=== PATIENT | male | born 1960 | race Caucasian/White ===

== ENCOUNTER 2017-09-02 15:27 | Emergency (ER) | payer OTHER ==
[~2017-09-02] VITALS: Ht 172.7 cm; Wt 70.5 kg
[2017-09-02] MEDS ORDERED: LIDO1KIT9 EX (15:44)
[2017-09-02] MEDS ORDERED: LIPI20TA PO (15:44)
[2017-09-02] MEDS ORDERED: HYDR100C PO (15:44)
[2017-09-02] MEDS ORDERED: VITA100054 PO (15:44)
[2017-09-02] MEDS ORDERED: TIZA4CAP3 PO (15:44)
[2017-09-02] MEDS ORDERED: IMIT100T PO (15:44)
[2017-09-02] MEDS ORDERED: ROXI1TAB2 PO (15:44)
[2017-09-02] MEDS ORDERED: AMBI5TAB PO (15:44)
[2017-09-02] MEDS ORDERED: TOPA50TA8 PO (15:44)
[2017-09-02] MEDS ORDERED: DULO30CA PO (15:44)
[2017-09-02] MEDS ORDERED: KETOROLAC 60 MG/2 ML VIAL (J1885) IM ONE (16:45)
[2017-09-02] MEDS ORDERED: diphenhydrAMINE INJ 50MG/ML VIAL (J1200) IM STA (16:51)
[2017-09-02] MEDS ORDERED: MORPHINE 2 MG/ML 1ML SYRINGE IM ONE (17:00)
[2017-09-02] MEDS ORDERED: MORPHINE 2 MG/ML 1ML SYRINGE IV ONE (17:45)
[2017-09-02 17:48] LABS: MEAN CORPUSCULAR HEMOGLOBIN 30.6 pg (27.0-33.0); MEAN CORPUSCULAR HGB CONC 34.5 g/dl (32.0-36.5); MEAN CORPUSCULAR VOLUME 88.5 fl (80.0-96.0); PLATELET COUNT, AUTOMATED 219 10^3/uL (150-450); RED CELL DISTRIBUTION WIDTH 12.3 % (11.5-14.5); WHITE BLOOD COUNT 9.2 10^3/uL (4.0-10.0)
[2017-09-02 18:00] LABS: ADD MANUAL DIFFER YES; ADD MORPHOLOGY? YES; DIFF SLIDE NUMBER 343; POSITIVE DIFF POS FLAG; POSITIVE MORPH POS FLAG; WBC SCAT POS FLAG
[2017-09-02 18:09] LABS: ALBUMIN 4.1 GM/DL (3.2-5.2); ALBUMIN/GLOBULIN RATIO 1.24 (1.00-1.93); ALKALINE PHOSPHATASE 71 U/L (45-117); ALT/SGPT 39 U/L (12-78); ANION GAP 12 MEQ/L (8-16); AST/SGOT 18 U/L (15-37); BILIRUBIN,TOTAL 0.8 MG/DL (0.2-1.0); BLOOD UREA NITROGEN 18 MG/DL (7-18); CALCIUM LEVEL 9.4 MG/DL (8.5-10.1); CARBON DIOXIDE LEVEL 25 MEQ/L (21-32); CHLORIDE LEVEL 105 MEQ/L (98-107); CREATININE FOR GFR 1.23 MG/DL (0.70-1.30); GLOMERULAR FILTRATION RATE > 60.0 (>56); GLUCOSE, FASTING 78 MG/DL (70-105); SODIUM LEVEL 142 MEQ/L (136-145); TOTAL PROTEIN 7.4 GM/DL (6.4-8.2)
[2017-09-02] MEDS ORDERED: MORPHINE 4 MG/ML 1ML SYRINGE IV ONE (18:15)
[2017-09-02] MEDS ORDERED: ONDANSETRON 4MG/2ML VIAL (J2405) IV ONE (18:15)
[2017-09-02 18:58] LABS: EOSINOPHILS 1 % (0-5)
[2017-09-02 19:30] VITALS: BP 111/65
[2017-09-02] MEDS ORDERED: POTASSIUM CHLORIDE 10 MEQ SR TABLET PO ONE (19:30)
== END 2017-09-02 19:51 | disposition home or self-care (01) ==
LOC: M ED 15:27
DX: G89.29 Other chronic pain (principal); M54.5 Low back pain; M62.830 Muscle spasm of back; Z87.891 Personal history of nicotine dependence; Z79.899 Other long term (current) drug therapy; Z88.8 Allergy status to other drugs, medicaments and biological substances
CPT/HCPCS: 80053; 85025; 94760; 96372; 96374; 96375; 96376; 99283; J1200; J2405; J3360

== ENCOUNTER 2019-05-03 12:50 | Day surgery (SDC) | payer OTHER ==
[~2019-05-03] VITALS: Ht 172.7 cm; Wt 73.5 kg
[~2019-05-03 12:50] MED LIST: AMBI5TAB PO; DULO30CA9 PO; HYDR100C PO; IMIT100T PO; LIDO1KIT9 EX; LIDOCAINE 2% INJ 100 MG/5 ML SDV (FOR ANES.) As Ordered ONE; LIPI20TA PO; NS 1,000 ML IV ONE; PROPOFOL 200 MG/20 ML VIAL As Ordered ONE; REME15TA2 PO; ROXI1TAB2 PO; TIZA4CAP PO; TOPA50TA8 PO; VITA100054 PO
[2019-05-03] MEDS ORDERED: PROPOFOL 200 MG/20 ML VIAL As Ordered ONE ×2 (14:07→14:42)
[2019-05-03] MEDS ORDERED: LIDOCAINE 2% INJ 100 MG/5 ML SDV (FOR ANES.) As Ordered ONE (14:07)
--- NOTE | 2019-05-03 14:56 | ROOR ---
Patient Name: Camron Crook Procedure Date: 05/03/2019 2:38 PM Date of : 1960 Age: 58 Room: [facility] Gender: Male Note Status: Finalized Procedure: Total Colonoscopy to Cecum Indications: High risk colon cancer surveillance: Personal history of colonic polyps, Last colonoscopy: 2012 Providers: Ashwin Munoz MD Referring MD: [facility]. Requesting Provider: Medicines: Monitored Anesthesia Care Complications: No immediate complications. Procedure: Pre-Anesthesia Assessment: - The heart rate, respiratory rate, oxygen saturations, blood pressure, adequacy of pulmonary ventilation, and response to care were monitored throughout the procedure. The Colonoscope was introduced through the anus and advanced to the cecum, identified by appendiceal orifice and ileocecal valve. The colonoscopy was performed without difficulty. The patient tolerated the procedure well. The quality of the bowel preparation was excellent. Findings: The perianal and digital rectal examinations were normal. Non-bleeding internal hemorrhoids were found during retroflexion. The hemorrhoids were small and Grade I (internal hemorrhoids that do not prolapse). No other significant abnormalities were identified in a careful examination of the remainder of the colon. The exam was otherwise without abnormality on direct and retroflexion views. Impression: - Non-bleeding internal hemorrhoids. - The examination was otherwise normal on direct and retroflexion views. - No specimens collected. - The exam was otherwise normal to the cecum. Recommendation: - Patient has a contact number available for emergencies. The signs and symptoms of potential delayed complications were discussed with the patient. Return to normal activities tomorrow. Written discharge instructions were provided to the patient. - High fiber diet. - Discharge patient to home. - Continue present medications. - Repeat colonoscopy in 5 years for surveillance. - Return to referring physician. - The findings and recommendations were discussed with the patient's family. Ashwin Munoz MD Ashwin Munoz MD 05/03/2019 2:55:48 PM Electronically signed by Ashwin Munoz MD Number of Addenda: 0 Note Initiated On: 05/03/2019 2:38 PM Estimated Blood Loss: Estimated blood loss: none.
[2019-05-03 15:20] VITALS: BP 138/81
== END 2019-05-03 15:31 | disposition home or self-care (01) ==
LOC: M OPP 12:50
PROVIDERS: ATTEND Internal Medicine Gastroenterology
DX: Z12.11 Encounter for screening for malignant neoplasm of colon (principal); Z86.010 Personal history of colon polyps; K64.0 First degree hemorrhoids; Z88.8 Allergy status to other drugs, medicaments and biological substances; Z79.899 Other long term (current) drug therapy

== ENCOUNTER → 2019-09-21 | Outpatient (CLI) | payer OTHER ==
[~2019-09-21] MED LIST changes: -LIDOCAINE 2% INJ 100 MG/5 ML SDV (FOR ANES.) As Ordered ONE; -NS 1,000 ML IV ONE; -PROPOFOL 200 MG/20 ML VIAL As Ordered ONE
--- NOTE | 2019-10-05 05:38 | ECWPNPC ---
PATIENT NAME: LALA RODRIGUEZ : 1960 GENDER: MALE VISIT DATE: 09/21/2019 DISCHARGE DATE: 09/21/19 1220 VISIT LOCKED DATE TIME: PHYSICIAN: SURY LENNON MD RESOURCE: SURY LENNON MD REASON FOR APPOINTMENT 1. CHRONIC BACK PAIN HISTORY OF PRESENT ILLNESS PAIN SCREENING: PATIENT HAS A COMPLAINT OF ACUTE OR CHRONIC PAIN :YES 59 YEAR OLD MALE PATIENT WITH A HISTORY OF LOW BACK PAIN. THE PATIENT DESCRIBES THE PAIN ACHING, BURNING, STABBING, SHOOTING, AND CONTINUOUS WITH A PAIN SCORE OF 3-10/10 DEPENDING ON PHYSICAL ACTIVITY. THE PATIENT STATES HIS PAIN BEGINS IN HIS LOW BACK, MAINLY ON THE RIGHT SIDE, AND OCCASIONALLY HAS INSTABILITY OF HIS RIGHT LEG THAT HAS CAUSED NUMEROUS FALLS. 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 THE PATIENT SAYS HIS PAIN IS AFFECTING HIS ABILITY TO PERFORM HIS DAILY ACTIVITIES SUCH CLEANING HIS HOUSE, GROCERY SHOPPING, AND SOCIALIZING. THE PATIENT EXPLAINS THAT HIS PAIN OFTEN GETS SEVERE AND HE DOES NOT WISH TO BE AROUND ANYONE. THE PATIENT SAYS HE HAS RECEIVED INJECTION THERAPY IN THE PAST THAT DID NOT OFFER MUCH RELIEF FOR HIM. THE PATIENT SAYS HE HAS CONCERNS OF THE USE OF STEROIDS FROM THE INJECTIONS AND HE WOULD PREFER NOT TO RECEIVE STEROIDS. PATIENT DENIES UNEXPLAINABLE WEIGHT LOSS, FEVER, CHILLS, NEW CHANGES ON HIS URINARY OR BOWEL CONTROL. FALL RISK SCREENING: SCREENING :NO FALLS REPORTED IN THE LAST YEAR CURRENT MEDICATIONS TAKING AMBIEN 5 MG TABLET 1 TABLET AT BEDTIME ORALLY ONCE A DAY TAKING CRESTOR 40 MG TABLET 1 TABLET ORALLY ONCE A DAY TAKING MAY HAVE - - CBD OIL CAPSULE 20MG DAILY TAKING MAY HAVE - - CBD VAPE NEEDED TAKING CARBOXYMETHYLCELLULOSE SODIUM 0.5 % SOLUTION DIRECTED OPHTHALMIC TAKING HYDROXYZINE HCL 10 MG TABLET DIRECTED ORALLY BID TAKING IMITREX 100 MG TABLET 1 TABLET AT LEAST 2 HOURS BETWEEN DOSES NEEDED ORALLY TWICE A DAY TAKING LIDOCAINE & ADHESIVE SHEET 5 % KIT DIRECTED EXTERNALLY TAKING CENTRUM SILVER - TABLET DIRECTED ORALLY TAKING PROBIOTIC - CAPSULE DIRECTED ORALLY TAKING OXYCODONE HCL 5 MG TABLET 1 TABLET NEEDED ORALLY BID TAKING REMERON 30 MG TABLET 1 TABLET AT BEDTIME ORALLY ONCE A DAY TAKING TOPAMAX 50 MG TABLET 1 TABLET ORALLY TID TAKING ZANAFLEX 4 MG TABLET 1 TABLET NEEDED ORALLY BID TAKING MAY USE - - THC ORAL SPRAY , NOTES: PT USES THC ORAL SPRAY, POWDER, AND VAPE MEDICATION LIST REVIEWED AND RECONCILED WITH THE PATIENT PAST MEDICAL HISTORY SLEEP APNEA CHRONIC BACK PAIN ALLERGIES COMPAZINE: SEIZURES - ALLERGY SURGICAL HISTORY LEFT SHOULDER SURGERY 11/2011 ABCESS FROM SPIDER BITE 1986 FAMILY HISTORY FATHER: , DIAGNOSED WITH OTHER MALIGNANT NEOPLASM OF UNSPECIFIED SITE MOTHER: SIBLINGS: UNSPECIFIED CEREBRAL ARTERY OCCLUSION WITH CEREBRAL INFARCTION, UNSPECIFIED HEART DISEASE SOCIAL HISTORY GENERAL: TOBACCO USE ARE YOU A:NONSMOKER EDUCATION LEVEL OF EDUCATION:COLLEGE DIET: GLUTEN FREE. LANGUAGE LANGUAGES SPOKEN:MACEDONIAN RECREATIONAL DRUG USE DRUG USE?NO EXERCISE: WALKS. LEARNING BARRIERS / SPECIAL NEEDS BARRIERS TO LEARNING?NO HEARING IMPAIRED?NO VISION IMPAIRED?YES :CORRECTIVE LENSES COGNITIVELY IMPAIRED?NO READINESS TO LEARN?YES PAIN CLINIC PFS, CLERGY, PUBLIC HEALTH REFERRALS HAS THE PATIENT BEEN EDUCATED REGARDING HIS/HER PLAN OF CARE?YES HAS THE PATIENT BEEN EDUCATED REGARDING PAIN, THE RISK FOR PAIN, THE IMPORTANCE OF EFFECTIVE PAIN MANAGEMENT, AND THE PAIN ASSESSMENT PROCESS?YES LATEX QUESTIONNAIRE LATEX ALLERGY : HAVE YOU EVER DEVELOPED ANY TYPE OF REACTION AFTER HANDLING LATEX PRODUCTS SUCH RUBBER GLOVES, CONDOMS, DIAPHRAGMS, BALLOONS, SOCKS, OR UNDERWEAR?NO LATEX ALLERGY : HAVE YOU EVER DEVELOPED ANY TYPE OF REACTION DURING OR AFTER DENTAL APPOINTMENT, VAGINAL/RECTAL EXAMINATION, SURGICAL PROCEDURE, OR ANY OTHER EXPOSURE?NO LATEX RISK : HAVE YOU EVER HAD ANY DIFFICULTY BREATHING OR HIVES AFTER EATING OR HANDLING ANY FRUITS, OR VEGETABLES; SUCH KIWI, BANANAS, STONE FRUITS, OR CHESTNUTSNO LATEX RISK : DO YOU HAVE A PREVIOUS PERSONAL HISTORY OF MORE THAN NINE SURGERIES, SPINA BIFIDA, OR REPEATED CATHERIZATIONS? NO LATEX RISK : ARE YOU FREQUENTLY EXPOSED TO LATEX PRODUCTS IN YOUR OCCUPATION?NO DATE ASKED : 09/21/2019 CAFFEINE CAFFEINE USE?YES 1 CUP COFFEE DAILY ADVANCE DIRECTIVE ADVANCE DIRECTIVE DISCUSSED WITH PATIENT:YES PT DOES HAVE HCP AND CATHRYN ESTEBAN JUDAISM [id number] RELIGIOUS ALCOHOL SCREENING DID YOU HAVE A DRINK CONTAINING ALCOHOL IN THE PAST YEAR?YES HOW OFTEN DID YOU HAVE A DRINK CONTAINING ALCOHOL IN THE PAST YEAR?TWO TO FOUR TIMES A MONTH (2 POINTS) HOW MANY DRINKS DID YOU HAVE ON A TYPICAL DAY WHEN YOU WERE DRINKING IN THE PAST YEAR?1 OR 2 (0 POINTS) HOW OFTEN DID YOU HAVE SIX OR MORE DRINKS ON ONE OCCASION IN THE PAST YEAR?NEVER (0 POINTS) POINTS2 INTERPRETATIONNEGATIVE OCCUPATION: RETIRED. REVIEWED WITH PATIENT 09/21/19 1055 BV. HOSPITALIZATION/MAJOR DIAGNOSTIC PROCEDURE BACK PAIN 2006 SLIP AND FALL ON ICE INJURED BACK/HEAD 2008 LOW BACK PAIN 2017 REVIEW OF SYSTEMS REVIEWED BY: PROVIDER: SURY LENNON MD . CONSTITUTIONAL: ANY CHANGE IN YOUR MEDICAL CONDITION? NO . CHILLS NO . FEVER NO . INFECTION: DO YOU HAVE NEW INFECTIONS? NO . DO YOU HAVE HISTORY OF MRSA? NO . MUSCULOSKELETAL: ANY NEW PATTERNS OF PAIN OR NUMBNESS? NO . SYTEMIC LUPUS NO . GASTROENTEROLOGY: ANY NEW CHANGE IN BOWEL CONTROL? NO . BARRETTS ESOPHAGUS NO . CIRRHOSIS NO . HEPATITIS NO . LIVER FAILURE NO . ACID REFLUX NO . UNEXPLAINED WEIGHT LOSS NO . GENITOURINARY: ANY NEW CHANGE IN BLADDER CONTROL? NO . IS THERE A CHANCE YOU COULD BE ? NO . HEMATOLOGY/LYMPH: DO YOU TAKE ANY BLOOD THINNERS? (FOR EXAMPLE- COUMADIN, PLAVIX, AGGRENOX, PLATEL, PRADAXA, OR XARELTO) NO . WHEN WAS YOUR LAST DOSE? DATE: TIME: . LOW PLATELET COUNT NO . SICKLE CELL DISEASE NO . VON WILLIEBRANDS NO . FACTOR V LEIDEN NO . THALLASEMIA NO . ANEMIA NO . EASY BRUISING NO . NEUROLOGY: HAVE YOU FALLEN IN THE PAST 12 MONTHS? NO . ANY NEW EXTREMITY NUMBNESS OR WEAKNESS? NO . HEAD INJURY YES, PT STATES HE HAS HISTORY OF MULTIPLE CONCUSSION. STATES HIS LAST CONCUSSION WAS 2007 WHEN HE SLIPPED AND FELL ON ICE. STATES HE WAS TREATED IN HOSPITAL FOR THIS FALL . DEMENTIA NO . CEREBRAL PALSY NO . MULTIPLE SCLEROSIS NO . DIZZINESS NO . HEADACHE YES, PT STATES HE HAS MEDICATION FOR MIGRAINES, STATES HE WAS GETTING MIGRAINES A FEW TIMES A WEEK, BUT STATES HE HAS ONLY HAD 1 HEADACHE IN THE PAST MONTH. . STROKES NO . VERTIGO NO . CARDIOLOGY: DO YOU HAVE A PACEMAKER OR DEFIBRILLATOR? NO . ANGINA NO . HEART ATTACK NO . HEART SURGERY NO . CONGESTIVE HEART FAILURE/FLUID OVERLOAD NO . CHEST PAIN NO . HIGH BLOOD PRESSURE NO . IRREGULAR HEART BEAT NO . RESPIRATORY: HAVE YOU BEEN SICK IN THE PAST WEEK? NO . FEVER NO . FLU LIKE SYMPTOMS? NO . CPAP YES, DIAGNOSED WITH SLEEP APNEA, STATES HE DOES HAVE CPAP MACHINE BUT DOES NOT USE IT . BYPAP NO . ASTHMA NO . EMPHYSEMA NO . CHRONIC LUNG DISEASES NO . SHORTNESS OF BREATH ON EXERTION NO . COUGH NO . SNORING NO . INTEGUMENTARY: DO YOU HAVE ANY RASHES OR OPEN SORES? NO . ALLERGIC/IMMUNO: ARE YOU ALLERGIC TO IV DYE? NO . ANY NEW ALLERGIES? NO . PSYCHIATRIC: DO YOU HAVE THOUGHTS OF HURTING YOURSELF OR SOMEONE ELSE? NO . ARE YOU ABUSED, NEGLECTED, OR IN AN UNSAFE ENVIRONMENT? NO . ENDOCRINOLOGY: ARE YOU DIABETIC? NO . THYROID DISORDER NO . OTHER: DO YOU NEED ANY PRESCRIPTIONS? NO . IF YES, PLEASE LIST: ____ . ANY NEW PROBLEMS WITH YOUR MEDICATIONS? NO . WHEN DID YOU LAST EAT? ____ . WHEN DID YOU LAST DRINK? ____ . WHAT DID YOU LAST DRINK? ____ . NAME OF PERSON DRIVING YOU HOME? ____ . DO YOU HAVE ANY OTHER QUESTIONS OR CONCERNS NO . VITAL SIGNS WT 171.8 LBS, HT 58 IN, BMI 35.90 INDEX, BP 141/82 MM HG, HR 88 /MIN, RR 18 /MIN, TEMP 97.2 F, OXYGEN SAT % 98%, NA INITIALS AW 1041. EXAMINATION GENERAL EXAMINATION: PATIENT IS ALERT O X 3 AND COOPERATIVE. LUNGS CLEAR, TO AUSCULTATION. HEART: NO MURMURS OR GALLOPS; FACIAL CRANIAL NERVES ARE GROSSLY NORMAL. GOOD SYMMETRY OF FACIAL MUSCLE MOVEMENT. NORMAL VISUAL VEGA. ANTALGIC WALK. PATIENT IS LIMPING FROM THE RIGHT LEG. PRESENCE OF BANDS OF TISSUE AND TRIGGER POINTS WITH RESTRICTION OF MOVEMENT OF THE LOW BACK. RIGHT LEG IS WEAKER AT EXTENSION AND FLEXION. STRAIGHT LEG RAISE OF THE RIGHT LEG IS POSITIVE AT 60 DEGREES FOR RADICULOPATHY. PAIN INCREASES OVER THE LUMBAR FACET JOINTS WITH EXTENSION AND LATERAL ROTATION OF THE BACK, ESPECIALLY ON THE RIGHT SIDE. X-RAY OF THE LUMBAR SPINE DONE ON 07/12/2019 SHOWS DEXTROSCOLIOSIS, DISC DEGENERATION, AND DISC NARROWING AT L5-S1. ASSESSMENTS MYALGIA, OTHER SITE - M79.18 (PRIMARY) OTHER CHRONIC PAIN - G89.29 LOW BACK PAIN - M54.5 INTERVERTEBRAL DISC DISORDERS WITH RADICULOPATHY, LUMBAR REGION - M51.16 TREATMENT MYALGIA, OTHER SITE CLINICAL NOTES: WE DISCUSSED SEVERAL ISSUES WITH MR. RODRIGUEZ'S PAIN MANAGEMENT CASE. I AM ORDERING FOR A LUMBAR MRI TO GET A BETTER UNDERSTANDING OF WHERE THE PATIENT'S PAIN IS ORIGINATING FROM. DEPENDING ON THE MRI RESULTS, I MAY CONSIDER TRYING A TRIGGER POINT INJECTION OR A LUMBAR FACET BLOCK. THE PATIENT EXPRESSED HE HAS CONCERNS OF STEROID USE, SO WE MAY TRY TRIGGER POINT INJECTIONS WITHOUT STEROIDS OR DIAGNOSTIC FACET BLOCKS TO CONSIDER RADIOFREQUENCY. THE PATIENT WILL FOLLOW UP WITH THE NURSE PRACTITIONER TO REVIEW THE MRI RESULTS AND DISCUSS OPTIONS TO PROCEED WITH. INSTRUCTIONS WERE GIVEN, QUESTIONS WERE ANSWERED, PATIENT REPORTS UNDERSTANDING AND AGREES WITH THE PLAN. I, DILLAN HAN, DOCUMENTED THE ABOVE INFORMATION ACTING A SCRIBE FOR DR. LENNON. I HAVE REVIEWED THE ABOVE DOCUMENT, WRITTEN BY DILLAN JAQUEZ AND I VERIFY THAT IT IS ACCURATE. [facility]: THANK YOU FOR YOUR KIND REFERRAL OF LALA RODRIGUEZ. IF YOU WANT TO DISCUSS HIS CASE WITH ME PLEASE CALL ME AT THE PAIN CENTER AT [phone]. SINCERELY, SURY LENNON MD PAIN MEDICINE . OTHER CHRONIC PAIN [facility] MRI LUMBAR W/O CONTRAST (CPT [id number],ASHLEY 09/21/2019 3:13:22 PM > AUTH #[id number] LOW BACK PAIN [facility] MRI LUMBAR W/O CONTRAST (CPT [id number],ASHLEY 09/21/2019 3:13:22 PM > AUTH #[id number] PROCEDURE CODES FA211 ESTABILISHED PATIENT [facility] FACILITY CHARGE G8427 CURRENT MEDS W/DOSAGES DOCUMENTED G8730 PAIN ASSESS POS TOOL F/U PLAN DOC DISPOSITION & COMMUNICATION FOLLOW UP REASON: ORDER L MRI ELECTRONICALLY SIGNED BY SURY LENNON MD, MD ON 10/04/2019 AT 05:25 PM EST DISCLAIMER : THIS IS A VISIT SUMMARY EXTRACTED FROM THE [employer] CHART. IT IS NOT A COPY OF THE [employer] PROGRESS NOTE. RONNYD
== END ==
LOC: M PAIN 10:30
PROVIDERS: ATTEND Anesthesiology
DX: M79.18 Myalgia, other site (principal); G89.29 Other chronic pain; M54.5 Low back pain; M51.16 Intervertebral disc disorders with radiculopathy, lumbar region; G47.30 Sleep apnea, unspecified; Z88.8 Allergy status to other drugs, medicaments and biological substances; Z79.899 Other long term (current) drug therapy

== ENCOUNTER → 2019-09-24 | Outpatient (CLI) | payer OTHER ==
--- NOTE | 2019-09-24 08:47 | REP ---
MRI lumbar spine: 09/24/2019. Indication: Low back pain. Comparison: 09/02/2017. Technique: Short and long TR sequences of the lumbar spine were obtained without IV Gadolinium. Findings: Vertebral body alignment is within anatomical limits. No worrisome marrow or cord signal is present. There is disc desiccation throughout. Disc space narrowing is additionally noted most pronounced at L5/S1. No significant paraspinal soft tissue abnormalities are present. L1/L2: There is no disc herniation or significant spinal canal / neural foraminal narrowing. L2/L3: Mild diffuse disc bulging bilateral facet arthropathy are present with minimal spinal canal and neural foraminal narrowing. L3/L4: There is a right lateral disc protrusion with moderate narrowing of the spinal canal. Bilateral facet arthropathy is present. There is no significant spinal canal or left neural foraminal narrowing. L4/L5: There is an asymmetric diffuse disc bulge with moderate right lateral recess narrowing . The diffuse disc bulge is more pronounced on the left with mild left-sided marginal osteophytic spurring. There is moderate left and mild right neural foraminal narrowing. L5/S1: Diffuse disc and spur complex is present with mild spinal canal narrowing. Moderate bilateral neural foraminal narrowing is present. Impression: Multilevel degenerative sequelae of the lumbar spine as described. Please correlate with radicular level. No severe spinal canal narrowing. Electronically Signed by Yoel Urbina DO 09/24/2019 08:38 A
== END ==
LOC: M RAD 06:46
PROVIDERS: ATTEND Anesthesiology
DX: G89.29 Other chronic pain (principal); M51.26 Other intervertebral disc displacement, lumbar region; M51.27 Other intervertebral disc displacement, lumbosacral region

== ENCOUNTER → 2019-10-12 | Outpatient (CLI) | payer OTHER ==
--- NOTE | 2019-10-26 03:03 | ECWPNPC ---
PATIENT NAME: LALA RODRIGUEZ : 1960 GENDER: MALE VISIT DATE: 10/12/2019 DISCHARGE DATE: 10/12/19 1148 VISIT LOCKED DATE TIME: PHYSICIAN: HITESH WOODS RESOURCE: HITESH WOODS REASON FOR APPOINTMENT 1. REVIEW MRI HISTORY OF PRESENT ILLNESS HISTORY OF PRESENT ILLNESS: HERE FOR F/U OF CHRONIC LBP.DESCRIBES PAIN CONTINUOUS AND ACHING IN CENTRAL LOW BACK.REPORTS FREQUENT EPISODES OF NIGHTTIME AWAKENINGS DUE TO PAIN.RATING PAIN VAS 3-6/10.REVIEWED MRI L/S SPINE AND DISCUSSED TREATMENT OPTIONS. PAIN THE PATIENT DESCRIBES THE PAIN... FALL RISK SCREENING: SCREENING :NO FALLS REPORTED IN THE LAST YEAR CURRENT MEDICATIONS TAKING AMBIEN 5 MG TABLET 1 TABLET AT BEDTIME ORALLY ONCE A DAY TAKING CRESTOR 40 MG TABLET 1 TABLET ORALLY ONCE A DAY TAKING MAY HAVE - - CBD OIL CAPSULE 20MG DAILY TAKING MAY HAVE - - CBD VAPE NEEDED TAKING HYDROXYZINE HCL 10 MG TABLET DIRECTED ORALLY BID TAKING IMITREX 100 MG TABLET 1 TABLET AT LEAST 2 HOURS BETWEEN DOSES NEEDED ORALLY TWICE A DAY TAKING LIDOCAINE & ADHESIVE SHEET 5 % KIT DIRECTED EXTERNALLY TAKING CENTRUM SILVER - TABLET DIRECTED ORALLY TAKING PROBIOTIC - CAPSULE DIRECTED ORALLY TAKING OXYCODONE HCL 5 MG TABLET 1 TABLET NEEDED ORALLY BID TAKING REMERON 30 MG TABLET 1 TABLET AT BEDTIME ORALLY ONCE A DAY TAKING TOPAMAX 50 MG TABLET 1 TABLET ORALLY TID TAKING ZANAFLEX 4 MG TABLET 1 TABLET NEEDED ORALLY BID TAKING MAY USE - - THC ORAL SPRAY , NOTES: PT USES THC ORAL SPRAY, POWDER, AND VAPE NOT-TAKING CARBOXYMETHYLCELLULOSE SODIUM 0.5 % SOLUTION DIRECTED OPHTHALMIC MEDICATION LIST REVIEWED AND RECONCILED WITH THE PATIENT PAST MEDICAL HISTORY SLEEP APNEA CHRONIC BACK PAIN ALLERGIES COMPAZINE: SEIZURES - ALLERGY SURGICAL HISTORY LEFT SHOULDER SURGERY 11/2011 ABCESS FROM SPIDER BITE 1986 FAMILY HISTORY FATHER: , DIAGNOSED WITH OTHER MALIGNANT NEOPLASM OF UNSPECIFIED SITE MOTHER: SIBLINGS: UNSPECIFIED HEART DISEASE, UNSPECIFIED CEREBRAL ARTERY OCCLUSION WITH CEREBRAL INFARCTION SOCIAL HISTORY GENERAL: TOBACCO USE ARE YOU A:NONSMOKER EDUCATION LEVEL OF EDUCATION:COLLEGE DIET: GLUTEN FREE. LANGUAGE LANGUAGES SPOKEN:ECUADOREAN RECREATIONAL DRUG USE DRUG USE?NO EXERCISE: WALKS. LEARNING BARRIERS / SPECIAL NEEDS BARRIERS TO LEARNING?NO HEARING IMPAIRED?NO VISION IMPAIRED?YES COGNITIVELY IMPAIRED?NO :CORRECTIVE LENSES READINESS TO LEARN?YES PAIN CLINIC PFS, CLERGY, PUBLIC HEALTH REFERRALS HAS THE PATIENT BEEN EDUCATED REGARDING HIS/HER PLAN OF CARE?YES HAS THE PATIENT BEEN EDUCATED REGARDING PAIN, THE RISK FOR PAIN, THE IMPORTANCE OF EFFECTIVE PAIN MANAGEMENT, AND THE PAIN ASSESSMENT PROCESS?YES LATEX QUESTIONNAIRE LATEX ALLERGY : HAVE YOU EVER DEVELOPED ANY TYPE OF REACTION AFTER HANDLING LATEX PRODUCTS SUCH RUBBER GLOVES, CONDOMS, DIAPHRAGMS, BALLOONS, SOCKS, OR UNDERWEAR?NO LATEX ALLERGY : HAVE YOU EVER DEVELOPED ANY TYPE OF REACTION DURING OR AFTER DENTAL APPOINTMENT, VAGINAL/RECTAL EXAMINATION, SURGICAL PROCEDURE, OR ANY OTHER EXPOSURE?NO DATE ASKED : 09/21/2019 LATEX RISK : HAVE YOU EVER HAD ANY DIFFICULTY BREATHING OR HIVES AFTER EATING OR HANDLING ANY FRUITS, OR VEGETABLES; SUCH KIWI, BANANAS, STONE FRUITS, OR CHESTNUTSNO LATEX RISK : DO YOU HAVE A PREVIOUS PERSONAL HISTORY OF MORE THAN NINE SURGERIES, SPINA BIFIDA, OR REPEATED CATHERIZATIONS? NO LATEX RISK : ARE YOU FREQUENTLY EXPOSED TO LATEX PRODUCTS IN YOUR OCCUPATION?NO CAFFEINE CAFFEINE USE?YES 1 CUP COFFEE DAILY ADVANCE DIRECTIVE ADVANCE DIRECTIVE DISCUSSED WITH PATIENT:YES PT DOES HAVE HCP AND CATHRYN ESTEBAN RESTORATIONIST [id number] SCIENTOLOGIST ALCOHOL SCREENING DID YOU HAVE A DRINK CONTAINING ALCOHOL IN THE PAST YEAR?YES HOW OFTEN DID YOU HAVE SIX OR MORE DRINKS ON ONE OCCASION IN THE PAST YEAR?NEVER (0 POINTS) HOW MANY DRINKS DID YOU HAVE ON A TYPICAL DAY WHEN YOU WERE DRINKING IN THE PAST YEAR?1 OR 2 (0 POINTS) HOW OFTEN DID YOU HAVE A DRINK CONTAINING ALCOHOL IN THE PAST YEAR?TWO TO FOUR TIMES A MONTH (2 POINTS) POINTS2 INTERPRETATIONNEGATIVE OCCUPATION: RETIRED. REVIEWED WITH PATIENT 09/21/19 1055 BV. HOSPITALIZATION/MAJOR DIAGNOSTIC PROCEDURE BACK PAIN 2006 SLIP AND FALL ON ICE INJURED BACK/HEAD 2008 LOW BACK PAIN 2017 REVIEW OF SYSTEMS REVIEWED BY: PROVIDER: HITESH ANDERSEN . CONSTITUTIONAL: ANY CHANGE IN YOUR MEDICAL CONDITION? NO . CHILLS NO . FEVER NO . INFECTION: DO YOU HAVE NEW INFECTIONS? NO . DO YOU HAVE HISTORY OF MRSA? NO . MUSCULOSKELETAL: ANY NEW PATTERNS OF PAIN OR NUMBNESS? YES, LBP WORSE . GASTROENTEROLOGY: ANY NEW CHANGE IN BOWEL CONTROL? NO . GENITOURINARY: ANY NEW CHANGE IN BLADDER CONTROL? NO . IS THERE A CHANCE YOU COULD BE ? NO . HEMATOLOGY/LYMPH: DO YOU TAKE ANY BLOOD THINNERS? (FOR EXAMPLE- COUMADIN, PLAVIX, AGGRENOX, PLATEL, PRADAXA, OR XARELTO) NO . WHEN WAS YOUR LAST DOSE? DATE: TIME: . NEUROLOGY: HAVE YOU FALLEN IN THE PAST 12 MONTHS? YES, PRIOR TO LAST VISIT . ANY NEW EXTREMITY NUMBNESS OR WEAKNESS? NO . CARDIOLOGY: DO YOU HAVE A PACEMAKER OR DEFIBRILLATOR? NO . RESPIRATORY: HAVE YOU BEEN SICK IN THE PAST WEEK? NO . FEVER NO . FLU LIKE SYMPTOMS? NO . COUGH NO . INTEGUMENTARY: DO YOU HAVE ANY RASHES OR OPEN SORES? NO . ALLERGIC/IMMUNO: ARE YOU ALLERGIC TO IV DYE? NO . ANY NEW ALLERGIES? NO . PSYCHIATRIC: DO YOU HAVE THOUGHTS OF HURTING YOURSELF OR SOMEONE ELSE? NO . ARE YOU ABUSED, NEGLECTED, OR IN AN UNSAFE ENVIRONMENT? NO . ENDOCRINOLOGY: ARE YOU DIABETIC? NO . OTHER: DO YOU NEED ANY PRESCRIPTIONS? NO . IF YES, PLEASE LIST: ____ . ANY NEW PROBLEMS WITH YOUR MEDICATIONS? NO . WHEN DID YOU LAST EAT? ____ . WHEN DID YOU LAST DRINK? ____ . WHAT DID YOU LAST DRINK? ____ . NAME OF PERSON DRIVING YOU HOME? ____ . DO YOU HAVE ANY OTHER QUESTIONS OR CONCERNS NO . VITAL SIGNS WT 171.8 LBS, HT 58 IN, BMI 35.90 INDEX, BP 134/77 MM HG, HR 65 /MIN, RR 18 /MIN, TEMP 97.3 F, OXYGEN SAT % 98%, NA INITIALS AW 1045, REVIEWED BY: EM. EXAMINATION GENERAL EXAMINATION: GENERAL ALERT,NO DISTRESS . PSYCH AFFECT NORMAL . LUNGS: LUNG SOUNDS ARE CLEAR . HEART: HEART RATE REGULAR . MUSCULOSKELETAL: MST 5/5 BILAT. LOWER EXTREMITIES . FOR BILAT. SIJ TENDER OVER BILAT. L3/4-L4/5 FACETS WITH FACET LOADING TRIGGER POINT NOTED RIGHT LUMBAR PARASPINAL. DIAGNOSTIC TESTS REVIEWED MRI L/S [id number] . ASSESSMENTS LUMBAR FACET ARTHROPATHY - M47.816 (PRIMARY) TREATMENT LUMBAR FACET ARTHROPATHY NOTES: L3/4-L4/5 LFBT BILAT. PROCEDURE CODES FA211 ESTABILISHED PATIENT [facility] FACILITY CHARGE DISPOSITION & COMMUNICATION FOLLOW UP POST (REASON: L3/4-L4/5 LFBT BILAT) ELECTRONICALLY SIGNED BY NATHALY AVILA ON 10/25/2019 AT 12:51 PM EST DISCLAIMER : THIS IS A VISIT SUMMARY EXTRACTED FROM THE [employer] CHART. IT IS NOT A COPY OF THE [employer] PROGRESS NOTE. ELIANE
== END ==
LOC: M PAIN 10:45
PROVIDERS: ATTEND Nurse Practitioner Family
DX: M47.816 Spondylosis without myelopathy or radiculopathy, lumbar region (principal); M54.5 Low back pain; G47.30 Sleep apnea, unspecified; Z79.891 Long term (current) use of opiate analgesic; Z79.899 Other long term (current) drug therapy; Z88.8 Allergy status to other drugs, medicaments and biological substances

== ENCOUNTER → 2019-12-13 | Outpatient (CLI) | payer OTHER ==
[~2019-12-13] MED LIST changes: +BUPIVACAINE HCL 0.25% 30 ML VIAL As Ordered ONE; +ISOVUE-M 300 61% 15ML VIAL (Q9967) As Ordered ONE; +LIDOCAINE 1% SDV INJ 30 ML VIAL As Ordered ONE; +TRIAMCINOLONE ACETONIDE SUSP 40 MG/ML VIAL (J3301) As Ordered ONE; +oxyCODONE 5MG TAB As Ordered ONE
--- NOTE | 2019-12-13 18:35 | REP ---
C-ARM VIEWS LUMBAR SPINE: CLINICAL HISTORY: Pain. Four C-ARM views of the lower lumbar spine are performed during lumbar facet injection performed by Dr. Augustin. [place] are seen at the lower lumbar facet joints and a small amount of contrast is injected. 29 seconds of fluoroscopy time was utilized. Electronically Signed by José Miguel Newton MD 12/15/2019 12:13 P
--- NOTE | 2019-12-24 03:47 | ECWPNPC ---
PATIENT NAME: LALA RODRIGUEZ : 1960 GENDER: MALE VISIT DATE: 12/13/2019 DISCHARGE DATE: 12/13/19 1154 VISIT LOCKED DATE TIME: PHYSICIAN: SURY LENNON MD RESOURCE: SURY LENNON MD REASON FOR APPOINTMENT 1. L4-L5, L5-S1 LFBT BILAT HISTORY OF PRESENT ILLNESS HISTORY OF PRESENT ILLNESS: PAIN THE PATIENT DESCRIBES THE PAIN... FALL RISK SCREENING: SCREENING :NO FALLS REPORTED IN THE LAST YEAR CURRENT MEDICATIONS TAKING AMBIEN 5 MG TABLET 1 TABLET AT BEDTIME ORALLY ONCE A DAY, NOTES: NONE RECENT TAKING CRESTOR 40 MG TABLET 1 TABLET ORALLY ONCE A DAY, NOTES: 2 DAYS AGO TAKING MAY HAVE - - CBD OIL CAPSULE 20MG DAILY , NOTES: 12/12/19 PM TAKING MAY HAVE - - CBD VAPE NEEDED TAKING HYDROXYZINE HCL 10 MG TABLET DIRECTED ORALLY BID, NOTES: NONE RECENT TAKING LIDOCAINE & ADHESIVE SHEET 5 % KIT DIRECTED EXTERNALLY , NOTES: NONE RECENT TAKING CENTRUM SILVER - TABLET DIRECTED ORALLY , NOTES: 2 DAYS AGO TAKING PROBIOTIC - CAPSULE DIRECTED ORALLY , NOTES: 2 DAYS AGO TAKING OXYCODONE HCL 5 MG TABLET 1 TABLET NEEDED ORALLY BID, NOTES: A WEEK AGO TAKING REMERON 30 MG TABLET 1 TABLET AT BEDTIME ORALLY ONCE A DAY, NOTES: 12/12/19 PM TAKING TOPAMAX 50 MG TABLET 1 TABLET ORALLY TID, NOTES: 2 DAYS AGO TAKING ZANAFLEX 4 MG TABLET 1 TABLET NEEDED ORALLY BID, NOTES: NONE RECENT TAKING MAY USE - - THC ORAL SPRAY , NOTES: PT USES THC ORAL SPRAY, POWDER, AND VAPE TAKING MAXALT 10 MG TABLET 1 TABLET ORALLY ONCE DAILY NEEDED, NOTES: NONE RECENT NOT-TAKING IMITREX 100 MG TABLET 1 TABLET AT LEAST 2 HOURS BETWEEN DOSES NEEDED ORALLY TWICE A DAY NOT-TAKING CARBOXYMETHYLCELLULOSE SODIUM 0.5 % SOLUTION DIRECTED OPHTHALMIC MEDICATION LIST REVIEWED AND RECONCILED WITH THE PATIENT PAST MEDICAL HISTORY SLEEP APNEA CHRONIC BACK PAIN MIGRAINES ANXIETY/DEPRESSION TINNITIS ALLERGIES COMPAZINE: SEIZURES - ALLERGY VALIUM: NAUSEA - SIDE EFFECTS SURGICAL HISTORY LEFT SHOULDER SURGERY 11/2011 ABCESS FROM SPIDER BITE 1986 FAMILY HISTORY FATHER: , DIAGNOSED WITH OTHER MALIGNANT NEOPLASM OF UNSPECIFIED SITE MOTHER: SIBLINGS: UNSPECIFIED HEART DISEASE, UNSPECIFIED CEREBRAL ARTERY OCCLUSION WITH CEREBRAL INFARCTION 2 BROTHER(S) . 1 SON(S) , 2 DAUGHTER(S) . DAUGHTER WITH MIGRAINES, CEREBRAL PALSY. SOCIAL HISTORY GENERAL: TOBACCO USE ARE YOU A:FORMER SMOKER HOW LONG HAS IT BEEN SINCE YOU LAST SMOKED?> 10 YEARS EDUCATION LEVEL OF EDUCATION:COLLEGE DIET: GLUTEN FREE. LANGUAGE LANGUAGES SPOKEN:ANDORRAN RECREATIONAL DRUG USE DRUG USE?NO EXERCISE: WALKS. LEARNING BARRIERS / SPECIAL NEEDS BARRIERS TO LEARNING?NO HEARING IMPAIRED?NO VISION IMPAIRED?YES :CORRECTIVE LENSES COGNITIVELY IMPAIRED?NO READINESS TO LEARN?YES LEARNING PREFERENCES?NO LEARNING CAPABILITIES PRESENT?YES EMOTIONAL BARRIERS?NO PT REPORTS HISTORY OF ANXIETY/DEPRESSION SPECIAL DEVICES?NO IT OPERATIONS MANAGER NEEDED?NO PAIN CLINIC PFS, CLERGY, PUBLIC HEALTH REFERRALS HAS THE PATIENT BEEN EDUCATED REGARDING HIS/HER PLAN OF CARE?YES HAS THE PATIENT BEEN EDUCATED REGARDING PAIN, THE RISK FOR PAIN, THE IMPORTANCE OF EFFECTIVE PAIN MANAGEMENT, AND THE PAIN ASSESSMENT PROCESS?YES LATEX QUESTIONNAIRE LATEX ALLERGY : HAVE YOU EVER DEVELOPED ANY TYPE OF REACTION AFTER HANDLING LATEX PRODUCTS SUCH RUBBER GLOVES, CONDOMS, DIAPHRAGMS, BALLOONS, SOCKS, OR UNDERWEAR?NO LATEX ALLERGY : HAVE YOU EVER DEVELOPED ANY TYPE OF REACTION DURING OR AFTER DENTAL APPOINTMENT, VAGINAL/RECTAL EXAMINATION, SURGICAL PROCEDURE, OR ANY OTHER EXPOSURE?NO DATE ASKED : 09/21/2019 LATEX RISK : HAVE YOU EVER HAD ANY DIFFICULTY BREATHING OR HIVES AFTER EATING OR HANDLING ANY FRUITS, OR VEGETABLES; SUCH KIWI, BANANAS, STONE FRUITS, OR CHESTNUTSNO LATEX RISK : DO YOU HAVE A PREVIOUS PERSONAL HISTORY OF MORE THAN NINE SURGERIES, SPINA BIFIDA, OR REPEATED CATHERIZATIONS? NO LATEX RISK : ARE YOU FREQUENTLY EXPOSED TO LATEX PRODUCTS IN YOUR OCCUPATION?NO CAFFEINE CAFFEINE USE?YES 1 CUP COFFEE DAILY ADVANCE DIRECTIVE ADVANCE DIRECTIVE DISCUSSED WITH PATIENT:YES PT DOES HAVE HCP AND CATHRYN ESTEBAN JUDAISM [id number] SPIRITISM ALCOHOL SCREENING DID YOU HAVE A DRINK CONTAINING ALCOHOL IN THE PAST YEAR?YES HOW OFTEN DID YOU HAVE SIX OR MORE DRINKS ON ONE OCCASION IN THE PAST YEAR?NEVER (0 POINTS) HOW MANY DRINKS DID YOU HAVE ON A TYPICAL DAY WHEN YOU WERE DRINKING IN THE PAST YEAR?1 OR 2 (0 POINTS) HOW OFTEN DID YOU HAVE A DRINK CONTAINING ALCOHOL IN THE PAST YEAR?TWO TO FOUR TIMES A MONTH (2 POINTS) POINTS2 INTERPRETATIONNEGATIVE OCCUPATION: RETIRED. REVIEWED WITH PATIENT 09/21/19 1055 BVPRE PROCEDURE PHONE INTERVIEW 11/30/2019 LAS. HOSPITALIZATION/MAJOR DIAGNOSTIC PROCEDURE BACK PAIN 2006 SLIP AND FALL ON ICE INJURED BACK/HEAD 2007 LOW BACK PAIN 2017 REVIEW OF SYSTEMS REVIEWED BY: PROVIDER: . CONSTITUTIONAL: ANY CHANGE IN YOUR MEDICAL CONDITION? NO . CHILLS NO . FEVER NO . INFECTION: DO YOU HAVE NEW INFECTIONS? NO . DO YOU HAVE HISTORY OF MRSA? NO . MUSCULOSKELETAL: ANY NEW PATTERNS OF PAIN OR NUMBNESS? PT MARKED NEW ON HIS INTAKE FORM, HOWEVER HE STATES NOTHING IS NEW, BUT PAIN IS INCREASED TODAY DUE TO CAR RIDE THIS MORNING . GASTROENTEROLOGY: ANY NEW CHANGE IN BOWEL CONTROL? NO . GENITOURINARY: ANY NEW CHANGE IN BLADDER CONTROL? NO . IS THERE A CHANCE YOU COULD BE ? NO . HEMATOLOGY/LYMPH: DO YOU TAKE ANY BLOOD THINNERS? (FOR EXAMPLE- COUMADIN, PLAVIX, AGGRENOX, PLATEL, PRADAXA, OR XARELTO) NO . WHEN WAS YOUR LAST DOSE? DATE: TIME: . NEUROLOGY: HAVE YOU FALLEN IN THE PAST 12 MONTHS? YES, PT STATES HE SLIPPED ON ICE IN OCTOBER 2019. DENIES ANY INJURIES OR ED VISIT WITH FALL. . ANY NEW EXTREMITY NUMBNESS OR WEAKNESS? NO . CARDIOLOGY: DO YOU HAVE A PACEMAKER OR DEFIBRILLATOR? NO . RESPIRATORY: HAVE YOU BEEN SICK IN THE PAST WEEK? NO . FEVER NO . FLU LIKE SYMPTOMS? NO . COUGH NO . INTEGUMENTARY: DO YOU HAVE ANY RASHES OR OPEN SORES? NO . ALLERGIC/IMMUNO: ARE YOU ALLERGIC TO IV DYE? NO . ANY NEW ALLERGIES? NO . PSYCHIATRIC: DO YOU HAVE THOUGHTS OF HURTING YOURSELF OR SOMEONE ELSE? NO . ARE YOU ABUSED, NEGLECTED, OR IN AN UNSAFE ENVIRONMENT? NO . ENDOCRINOLOGY: ARE YOU DIABETIC? NO . OTHER: DO YOU NEED ANY PRESCRIPTIONS? NO . IF YES, PLEASE LIST: ____ . ANY NEW PROBLEMS WITH YOUR MEDICATIONS? NO . WHEN DID YOU LAST EAT? 12-12-19 1730 . WHEN DID YOU LAST DRINK? 12/12/190 . WHAT DID YOU LAST DRINK? WATER . NAME OF PERSON DRIVING YOU HOME? [employer] PHONE NUMBER [phone] . DO YOU HAVE ANY OTHER QUESTIONS OR CONCERNS NO . VITAL SIGNS WT 171.2 LBS, HT 58 IN, BMI 35.78 INDEX, BP 130/100 MM HG, REPEAT BP 128/90 MANUAL, BV, HR 86 /MIN, RR 18 /MIN, TEMP 96.7 F, OXYGEN SAT % 98%, NA INITIALS [id number], REVIEWED BY: BVLET NURSE KNOW ABOUT BP -RECHECKED BP AT 0940 128/90, BV. ASSESSMENTS SPONDYLOSIS WITHOUT MYELOPATHY OR RADICULOPATHY, LUMBAR REGION - M47.816 (PRIMARY) SPONDYLOSIS WITHOUT MYELOPATHY OR RADICULOPATHY, LUMBOSACRAL REGION - M47.817 PROCEDURES PN LUMBAR FACET BLOCK THERAPEUTIC PRE PROCEDURE DIAGNOSIS LUMBAR SPONDYLOSIS, LUMBOSACRAL SPONDYLOSIS POST PROCEDURE DIAGNOSIS LUMBAR SPONDYLOSIS, LUMBOSACRAL SPONDYLOSIS PROCEDURE BILATERAL L4-L5 AND BILATERAL L5-S1 LUMBAR FACET THERAPEUTIC BLOCK SURGEON DR. SURY LENNON CUSTOMER EXPERIENCE STRATEGIST NONE ANESTHESIA LOCAL PRE PROCEDURE NOTE THE PATIENT HAS A HISTORY OF CHRONIC LOW BACK PAIN. I EVALUATED THE PATIENT AND REVIEWED THE CHART. I WENT OVER THE RISKS, ALTERNATIVES AND BENEFITS ASSOCIATED WITH THIS PROCEDURE. THE PATIENT WOULD LIKE TO PROCEED AND GAVE CONSENT TO PERFORM THE PROCEDURE. THE PATIENT DENIES UNEXPLAINABLE WEIGHT LOSS, FEVER, CHILLS, OR NEW CHANGES IN URINARY OR BOWEL CONTROL. I, ANDREAS CHILDRESS, DOCUMENTED THE ABOVE INFORMATION ACTING A SCRIBE FOR DR. LENNON. I HAVE REVIEWED THE ABOVE DOCUMENT, WRITTEN BY LEONID GIRALDO, AND I VERIFY THAT IT IS ACCURATE DESCRIPTION OF PROCEDURE THE PATIENT WAS BROUGHT TO THE PROCEDURE ROOM AND PLACED IN THE PRONE POSITION. THE LUMBOSACRAL AREA WAS CLEANED WITH CHLORAPREP SOLUTION AND DRAPED ASEPTICALLY. THE PROCEDURE WAS DONE UNDER STERILE CONDITIONS. I CHECKED LATERALITY AND THE LEVEL WHERE THE PROCEDURE WAS GOING TO BE PERFORMED WITH THE PATIENT AND THE SUPPORTING STAFF AT THE MOMENT OF THE TIMEOUT IN THE PROCEDURE ROOM. UNDER FLUOROSCOPIC GUIDANCE, THE TARGET POINT WAS SELECTED AT THE RIGHT AND LEFT L4-L5 AND RIGHT AND LEFT L5-S1 FACET JOINTS. TARGET POINTS WERE SELECTED AFTER LATERAL ROTATION AND TILT OF THE MAGNIFIER OF THE C-ARM. LIDOCAINE 0.5% WAS USED TO NUMB THE SKIN AND THE SUBCUTANEOUS TISSUE BELOW IT. SPINAL NEEDLES, 22-GAUGE, WERE ADVANCED UNDER FLUOROSCOPIC GUIDANCE AND FOLLOWING PATIENT FEEDBACK UNTIL THE TARGETS WERE TOUCHED. THE POSITION OF THE NEEDLES WAS VERIFIED WITH AP AND LATERAL VIEWS. AFTER PROPER POSITION OF THE NEEDLES WAS ACHIEVED, ISOVUE-M DYE 30% 0.1 ML WAS INJECTED SHOWING ADEQUATE SPREAD OF THE DYE. THEN A SOLUTION OF 1.9 ML OF BUPIVACAINE 0.125% OF KENALOG 10 MG WAS INJECTED AT EACH SITE. THERE WAS NO EVIDENCE OF BLOOD, PARESTHESIA OR CEREBROSPINAL FLUID DURING THE PROCEDURE. THE PATIENT WAS SENT TO THE RECOVERY ROOM. THE PATIENT WAS MOVING THE EXTREMITIES AND DOING WELL. THERE WAS NO COMPLICATION DURING THE PROCEDURE. FLUOROSCOPY TIME WAS 29 SECONDS POST PROCEDURE NOTE THE PATIENT WILL BE SEEN IN A FOLLOWUP IN THE NEXT FEW WEEKS. I AM LOOKING FOR LONG-LASTING PAIN RELIEF WITH THIS INTERVENTION. IN THE FUTURE, WE WILL CONSIDER A BILATERAL SACROILIAC JOINT INJECTION. INSTRUCTIONS WERE GIVEN, QUESTIONS WERE ANSWERED AND THE PATIENT EXPRESSED UNDERSTANDING AND AGREES WITH THE PLAN. I, ANDREAS CHILDRESS, DOCUMENTED THE ABOVE INFORMATION ACTING A SCRIBE FOR DR. LENNON. I HAVE REVIEWED THE ABOVE DOCUMENT, WRITTEN BY LEONID GIRALDO, AND I VERIFY THAT IT IS ACCURATE DIAGNOSTIC IMAGING [facility] FACET BLOCK (PAIN)[id number] PROCEDURE CODES 07094 INJ PARAVERT F JNT L/S 1 LEV, MODIFIERS: 50 [id number] INJ PARAVERT F JNT L/S 2 LEV, MODIFIERS: 50 [id number] RADXPS IN END [id number] PXD DISPOSITION & COMMUNICATION FOLLOW UP 3 WEEKS ELECTRONICALLY SIGNED BY SURY LENNON MD, MD ON 12/23/2019 AT 05:18 PM EST DISCLAIMER : THIS IS A VISIT SUMMARY EXTRACTED FROM THE [facility] CHART. IT IS NOT A COPY OF THE [facility] PROGRESS NOTE. MTDD
== END ==
LOC: M PAIN 09:30
PROVIDERS: ATTEND Anesthesiology
DX: M47.816 Spondylosis without myelopathy or radiculopathy, lumbar region (principal); M47.817 Spondylosis without myelopathy or radiculopathy, lumbosacral region; G47.30 Sleep apnea, unspecified; G43.909 Migraine, unspecified, not intractable, without status migrainosus; Z86.59 Personal history of other mental and behavioral disorders; Z87.891 Personal history of nicotine dependence; Z88.5 Allergy status to narcotic agent; Z88.8 Allergy status to other drugs, medicaments and biological substances; Z79.899 Other long term (current) drug therapy
CPT/HCPCS: 64493; 64494; J3301; Q9967

== ENCOUNTER → 2019-12-27 | Outpatient (CLI) | payer OTHER ==
[~2019-12-27] MED LIST changes: -BUPIVACAINE HCL 0.25% 30 ML VIAL As Ordered ONE; -ISOVUE-M 300 61% 15ML VIAL (Q9967) As Ordered ONE; -LIDOCAINE 1% SDV INJ 30 ML VIAL As Ordered ONE; -TRIAMCINOLONE ACETONIDE SUSP 40 MG/ML VIAL (J3301) As Ordered ONE; -oxyCODONE 5MG TAB As Ordered ONE
--- NOTE | 2020-01-11 05:00 | ECWPNPC ---
PATIENT NAME: LALA RODRIGUEZ : 1960 GENDER: MALE VISIT DATE: 12/27/2019 DISCHARGE DATE: 12/27/19 1036 VISIT LOCKED DATE TIME: PHYSICIAN: HITESH WOODS RESOURCE: HITESH WOODS REASON FOR APPOINTMENT 1. POST FACET BLK HISTORY OF PRESENT ILLNESS HISTORY OF PRESENT ILLNESS: HERE FOR POST PROCEDURE FOLLOW-UP. HAD BILATERAL L4-5, L5-S1 LUMBAR FACET THERAPEUTIC BLOCK ON 12/13/2019. REPORTING MARKED REDUCTION IN PAIN WHICH CONTINUES TODAY . REPORTING IMPROVED ACTIVITY TOLERANCE SINCE PROCEDURE. RATING PAIN LEVEL 2-4/10 VAS. REPORTING AN ACHING SENSATION THAT IS CONTINUOUS IN HIS LOWER BACK AREA, BUT PATIENT STATES IS MANAGEABLE. DISCUSSED TREATMENT PLAN. PAIN THE PATIENT DESCRIBES THE PAIN... FALL RISK SCREENING: SCREENING :NO FALLS REPORTED IN THE LAST YEAR CURRENT MEDICATIONS TAKING AMBIEN 5 MG TABLET 1 TABLET AT BEDTIME ORALLY ONCE A DAY TAKING CRESTOR 40 MG TABLET 1 TABLET ORALLY ONCE A DAY TAKING MAY HAVE - - CBD OIL CAPSULE 20MG DAILY TAKING MAY HAVE - - CBD VAPE NEEDED TAKING HYDROXYZINE HCL 10 MG TABLET DIRECTED ORALLY BID TAKING LIDOCAINE & ADHESIVE SHEET 5 % KIT DIRECTED EXTERNALLY TAKING CENTRUM SILVER - TABLET DIRECTED ORALLY TAKING PROBIOTIC - CAPSULE DIRECTED ORALLY TAKING OXYCODONE HCL 5 MG TABLET 1 TABLET NEEDED ORALLY BID TAKING REMERON 30 MG TABLET 1 TABLET AT BEDTIME ORALLY ONCE A DAY TAKING TOPAMAX 50 MG TABLET 1 TABLET ORALLY TID TAKING ZANAFLEX 4 MG TABLET 1 TABLET NEEDED ORALLY BID TAKING MAY USE - - THC ORAL SPRAY , NOTES: PT USES THC ORAL SPRAY, POWDER, AND VAPE TAKING MAXALT 10 MG TABLET 1 TABLET ORALLY ONCE DAILY NEEDED NOT-TAKING IMITREX 100 MG TABLET 1 TABLET AT LEAST 2 HOURS BETWEEN DOSES NEEDED ORALLY TWICE A DAY NOT-TAKING CARBOXYMETHYLCELLULOSE SODIUM 0.5 % SOLUTION DIRECTED OPHTHALMIC MEDICATION LIST REVIEWED AND RECONCILED WITH THE PATIENT PAST MEDICAL HISTORY SLEEP APNEA CHRONIC BACK PAIN MIGRAINES ANXIETY/DEPRESSION TINNITIS ALLERGIES COMPAZINE: SEIZURES - ALLERGY VALIUM: NAUSEA - SIDE EFFECTS SURGICAL HISTORY LEFT SHOULDER SURGERY 11/2011 ABCESS FROM SPIDER BITE 1986 FAMILY HISTORY FATHER: , DIAGNOSED WITH OTHER MALIGNANT NEOPLASM OF UNSPECIFIED SITE MOTHER: SIBLINGS: UNSPECIFIED HEART DISEASE, UNSPECIFIED CEREBRAL ARTERY OCCLUSION WITH CEREBRAL INFARCTION 2 BROTHER(S) . 1 SON(S) , 2 DAUGHTER(S) . DAUGHTER WITH MIGRAINES, CEREBRAL PALSY. SOCIAL HISTORY GENERAL: TOBACCO USE ARE YOU A:FORMER SMOKER HOW LONG HAS IT BEEN SINCE YOU LAST SMOKED?> 10 YEARS EDUCATION LEVEL OF EDUCATION:COLLEGE DIET: GLUTEN FREE. LANGUAGE LANGUAGES SPOKEN:SINGAPOREAN RECREATIONAL DRUG USE DRUG USE?NO EXERCISE: WALKS. LEARNING BARRIERS / SPECIAL NEEDS BARRIERS TO LEARNING?NO HEARING IMPAIRED?NO VISION IMPAIRED?YES COGNITIVELY IMPAIRED?NO :CORRECTIVE LENSES READINESS TO LEARN?YES LEARNING PREFERENCES?NO LEARNING CAPABILITIES PRESENT?YES EMOTIONAL BARRIERS?NO PT REPORTS HISTORY OF ANXIETY/DEPRESSION SPECIAL DEVICES?NO COUTURIERE NEEDED?NO PAIN CLINIC PFS, CLERGY, PUBLIC HEALTH REFERRALS HAS THE PATIENT BEEN EDUCATED REGARDING HIS/HER PLAN OF CARE?YES HAS THE PATIENT BEEN EDUCATED REGARDING PAIN, THE RISK FOR PAIN, THE IMPORTANCE OF EFFECTIVE PAIN MANAGEMENT, AND THE PAIN ASSESSMENT PROCESS?YES LATEX QUESTIONNAIRE LATEX ALLERGY : HAVE YOU EVER DEVELOPED ANY TYPE OF REACTION AFTER HANDLING LATEX PRODUCTS SUCH RUBBER GLOVES, CONDOMS, DIAPHRAGMS, BALLOONS, SOCKS, OR UNDERWEAR?NO LATEX ALLERGY : HAVE YOU EVER DEVELOPED ANY TYPE OF REACTION DURING OR AFTER DENTAL APPOINTMENT, VAGINAL/RECTAL EXAMINATION, SURGICAL PROCEDURE, OR ANY OTHER EXPOSURE?NO LATEX RISK : HAVE YOU EVER HAD ANY DIFFICULTY BREATHING OR HIVES AFTER EATING OR HANDLING ANY FRUITS, OR VEGETABLES; SUCH KIWI, BANANAS, STONE FRUITS, OR CHESTNUTSNO LATEX RISK : DO YOU HAVE A PREVIOUS PERSONAL HISTORY OF MORE THAN NINE SURGERIES, SPINA BIFIDA, OR REPEATED CATHERIZATIONS? NO LATEX RISK : ARE YOU FREQUENTLY EXPOSED TO LATEX PRODUCTS IN YOUR OCCUPATION?NO DATE ASKED : 09/21/2019 CAFFEINE CAFFEINE USE?YES 1 CUP COFFEE DAILY ADVANCE DIRECTIVE ADVANCE DIRECTIVE DISCUSSED WITH PATIENT:YES PT DOES HAVE HCP CATHRYN ESTEBAN CHRISTIAN [id number] BAPTISM ALCOHOL SCREENING DID YOU HAVE A DRINK CONTAINING ALCOHOL IN THE PAST YEAR?YES HOW OFTEN DID YOU HAVE SIX OR MORE DRINKS ON ONE OCCASION IN THE PAST YEAR?NEVER (0 POINTS) HOW MANY DRINKS DID YOU HAVE ON A TYPICAL DAY WHEN YOU WERE DRINKING IN THE PAST YEAR?1 OR 2 (0 POINTS) HOW OFTEN DID YOU HAVE A DRINK CONTAINING ALCOHOL IN THE PAST YEAR?TWO TO FOUR TIMES A MONTH (2 POINTS) POINTS2 INTERPRETATIONNEGATIVE OCCUPATION: RETIRED. REVIEWED WITH PATIENT 09/21/19 1055 BVPRE PROCEDURE PHONE INTERVIEW 11/30/2019 LAS REVIEWED WITH PATIENT 12/27/2019 1006 JS. HOSPITALIZATION/MAJOR DIAGNOSTIC PROCEDURE BACK PAIN 2006 SLIP AND FALL ON ICE INJURED BACK/HEAD 2008 LOW BACK PAIN 2017 REVIEW OF SYSTEMS REVIEWED BY: PROVIDER: HITESH ANDERSEN . CONSTITUTIONAL: ANY CHANGE IN YOUR MEDICAL CONDITION? NO . CHILLS NO . FEVER NO . INFECTION: DO YOU HAVE NEW INFECTIONS? NO . DO YOU HAVE HISTORY OF MRSA? NO . MUSCULOSKELETAL: ANY NEW PATTERNS OF PAIN OR NUMBNESS? YES, STATES PAIN IS IMPROVED SINCE INJECTION . GASTROENTEROLOGY: ANY NEW CHANGE IN BOWEL CONTROL? NO . GENITOURINARY: ANY NEW CHANGE IN BLADDER CONTROL? NO . IS THERE A CHANCE YOU COULD BE ? NO . HEMATOLOGY/LYMPH: DO YOU TAKE ANY BLOOD THINNERS? (FOR EXAMPLE- COUMADIN, PLAVIX, AGGRENOX, PLATEL, PRADAXA, OR XARELTO) NO . WHEN WAS YOUR LAST DOSE? DATE: TIME: . NEUROLOGY: HAVE YOU FALLEN IN THE PAST 12 MONTHS? YES, STATES PRIOR TO LAST VISIT, DISCUSSED AT PREVIOUS VISIT . ANY NEW EXTREMITY NUMBNESS OR WEAKNESS? NO . CARDIOLOGY: DO YOU HAVE A PACEMAKER OR DEFIBRILLATOR? NO . RESPIRATORY: HAVE YOU BEEN SICK IN THE PAST WEEK? NO . FEVER NO . FLU LIKE SYMPTOMS? NO . COUGH NO . INTEGUMENTARY: DO YOU HAVE ANY RASHES OR OPEN SORES? NO . ALLERGIC/IMMUNO: ARE YOU ALLERGIC TO IV DYE? NO . ANY NEW ALLERGIES? NO . PSYCHIATRIC: DO YOU HAVE THOUGHTS OF HURTING YOURSELF OR SOMEONE ELSE? NO . ARE YOU ABUSED, NEGLECTED, OR IN AN UNSAFE ENVIRONMENT? NO . ENDOCRINOLOGY: ARE YOU DIABETIC? NO . OTHER: DO YOU NEED ANY PRESCRIPTIONS? NO . IF YES, PLEASE LIST: ____ . ANY NEW PROBLEMS WITH YOUR MEDICATIONS? NO . WHEN DID YOU LAST EAT? ____ . WHEN DID YOU LAST DRINK? ____ . WHAT DID YOU LAST DRINK? ____ . NAME OF PERSON DRIVING YOU HOME? ____ . DO YOU HAVE ANY OTHER QUESTIONS OR CONCERNS NO . VITAL SIGNS WT 171.2 LBS, HT 58 IN, BMI 35.78 INDEX, BP 127/85 MM HG, HR 86 /MIN, RR 18 /MIN, TEMP 97.4 F, OXYGEN SAT % 97%, SAFE IN ENV? (Y/N) YES, NA INITIALS AW 1007, REVIEWED BY: JS, WOUND POST BLOOD GLUCOSE LEVEL . EXAMINATION GENERAL EXAMINATION: GENERALAWAKE,ALERT ,PLEASANT . PSYCHAFFECT NORMAL . LUNGS:LUNG VEGA ARE CLEAR TO AUSCULTATION BILATERALLY. GOOD MOVEMENT OF AIR . HEART:S1, S2 IN A REGULAR RATE AND RHYTHM. NO SIGNIFICANT MURMURS, RUBS OR GALLOPS NOTED . ASSESSMENTS LUMBAR FACET ARTHROPATHY - M47.816 (PRIMARY) TREATMENT LUMBAR FACET ARTHROPATHY NOTES: PATIENT WAS ADVISED TO START A WALKING PROGRAM TO STRENGTHEN LUMBAR PARASPINAL MUSCLES AND IMPROVE MOBILITY. THEY WERE ADVISED THAT THIS WILL IMPROVE WEIGHT LOSS AND ALSO DEPRESSION/FIBROMYALGIA SYMPTOMS. ADVISED TO WALK 10 MINUTES EVERY OTHER DAY ON A FLAT SURFACE. EMPHASIZED THE IMPORTANCE OF DOING THIS CONSISTANTLY AND NOT SPORATICALLY TO AVOID INJURY. PROCEDURE CODES FA211 ESTABILISHED PATIENT [facility] CHARGE DISPOSITION & COMMUNICATION FOLLOW UP 6-8WKS (REASON: LOW BACK PAIN) ELECTRONICALLY SIGNED BY NATHALY AVILA ON 01/10/2020 AT 04:23 PM EST DISCLAIMER : THIS IS A VISIT SUMMARY EXTRACTED FROM THE [employer] CHART. IT IS NOT A COPY OF THE [employer] PROGRESS NOTE. ELIANE
== END ==
LOC: M PAIN 09:30
PROVIDERS: ATTEND Nurse Practitioner Family
DX: M47.816 Spondylosis without myelopathy or radiculopathy, lumbar region (principal); G47.30 Sleep apnea, unspecified; G43.909 Migraine, unspecified, not intractable, without status migrainosus; Z86.59 Personal history of other mental and behavioral disorders; Z87.891 Personal history of nicotine dependence; Z88.5 Allergy status to narcotic agent; Z88.8 Allergy status to other drugs, medicaments and biological substances; Z79.899 Other long term (current) drug therapy

== ENCOUNTER → 2020-02-01 | Outpatient (REF) | payer OTHER ==
[2020-02-01 14:10] LABS: APPEARANCE, URINE HAZY (CLEAR); BACTERIA, URINE AUTO NEGATIVE (NEGATIVE); BILIRUBIN, URINE AUTO NEGATIVE (NEGATIVE); BLOOD, URINE BLOOD NEGATIVE (NEGATIVE); CALCIUM OXALATE CRYSTALS SMALL; COLOR, URINE YELLOW (YELLOW); GLUCOSE, URINE (UA) AUTO NEGATIVE (NEGATIVE); KETONE, URINE AUTO TRACE mg/dL (NEGATIVE); LEUKOCYTE ESTERASE, URINE AUTO NEGATIVE (NEGATIVE); MUCUS, URINE SMALL (NEGATIVE); NITRITE, URINE AUTO NEGATIVE (NEGATIVE); PROTEIN, URINE AUTO NEGATIVE (NEGATIVE); RBC, URINE AUTO 1 /HPF (0-3); SQUAMOUS EPITHELIAL CELL UR AU 0 /HPF (0-6); UROBILINOGEN, URINE AUTO 0.2 mg/dL (0.0-2.0); WBC, URINE AUTO 2 /HPF (0-3)
== END ==
LOC: M SMT 13:01
PROVIDERS: ATTEND Nurse Practitioner Family
DX: R35.0 Frequency of micturition (principal)
CPT/HCPCS: 51798; 81001; 87086; G0463

== ENCOUNTER → 2020-02-02 | Outpatient (CLI) | payer OTHER ==
--- NOTE | 2020-02-02 18:17 | REP ---
Clinical: Left groin pain. Technique: Real time cardona scale and color evaluation using linear high frequency transducer. Findings: Ultrasound examination demonstrates bilateral fat containing inguinal hernias. Left fat containing inguinal hernia is nonreducible and extends to the level of the mid inguinal canal. Peritoneal defect measures between 26.5 and 31.7 mm diameter with Valsalva. Right fat containing inguinal hernia is partially reducible and extends to the level of the proximal inguinal canal. Peritoneal defect measures between 22.3 and 30.7 mm with Valsalva. Impression: Bilateral fat containing inguinal hernias as described above. Electronically Signed by Jorge Hoffmann MD 02/02/2020 06:07 P
== END ==
LOC: M RAD 08:24
PROVIDERS: ATTEND Nurse Practitioner Family
DX: K40.90 Unilateral inguinal hernia, without obstruction or gangrene, not specified as recurrent (principal)

== ENCOUNTER → 2020-02-08 | Outpatient (CLI) | payer OTHER ==
--- NOTE | 2020-02-23 03:45 | ECWPNPC ---
PATIENT NAME: LALA RODRIGUEZ : 1960 GENDER: MALE VISIT DATE: 02/08/2020 DISCHARGE DATE: 02/08/20929 VISIT LOCKED DATE TIME: PHYSICIAN: HITESH WOODS RESOURCE: HITESH WOODS REASON FOR APPOINTMENT 1. 6-8 WEEKS HISTORY OF PRESENT ILLNESS HISTORY OF PRESENT ILLNESS: HERE FOR FOLLOW-UP OF CHRONIC LOW BACK PAIN. REPORTS THAT HE CONTINUES TO BENEFIT FROM BILATERAL LUMBAR THERAPEUTIC BLOCK DONE ON 12/13/2019. RATING PAIN LEVEL A 2/10 VAS. DESCRIBES PAIN CONSTANT ACHING. REPORTS IMPROVED ACTIVITY TOLERANCE SINCE HAVING LUMBAR FACET BLOCK DONE IN NOVEMBER. OVERALL DOING WELL. PAIN THE PATIENT DESCRIBES THE PAIN... FALL RISK SCREENING: SCREENING :NO FALLS REPORTED IN THE LAST YEAR CURRENT MEDICATIONS TAKING AMBIEN 5 MG TABLET 1 TABLET AT BEDTIME ORALLY ONCE A DAY TAKING CRESTOR 40 MG TABLET 1 TABLET ORALLY ONCE A DAY TAKING MAY HAVE - - CBD OIL CAPSULE 20MG DAILY TAKING MAY HAVE - - CBD VAPE NEEDED TAKING HYDROXYZINE HCL 10 MG TABLET DIRECTED ORALLY BID TAKING LIDOCAINE & ADHESIVE SHEET 5 % KIT DIRECTED EXTERNALLY TAKING CENTRUM SILVER - TABLET DIRECTED ORALLY TAKING PROBIOTIC - CAPSULE DIRECTED ORALLY TAKING OXYCODONE HCL 5 MG TABLET 1 TABLET NEEDED ORALLY BID TAKING REMERON 30 MG TABLET 1 TABLET AT BEDTIME ORALLY ONCE A DAY TAKING TOPAMAX 50 MG TABLET 1 TABLET ORALLY TID TAKING ZANAFLEX 4 MG TABLET 1 TABLET NEEDED ORALLY BID TAKING MAY USE - - THC ORAL SPRAY , NOTES: PT USES THC ORAL SPRAY, POWDER, AND VAPE TAKING MAXALT 10 MG TABLET 1 TABLET ORALLY ONCE DAILY NEEDED NOT-TAKING IMITREX 100 MG TABLET 1 TABLET AT LEAST 2 HOURS BETWEEN DOSES NEEDED ORALLY TWICE A DAY NOT-TAKING CARBOXYMETHYLCELLULOSE SODIUM 0.5 % SOLUTION DIRECTED OPHTHALMIC MEDICATION LIST REVIEWED AND RECONCILED WITH THE PATIENT PAST MEDICAL HISTORY SLEEP APNEA CHRONIC BACK PAIN MIGRAINES ANXIETY/DEPRESSION TINNITIS INGUINAL HERNIA BILATERAL DIAGNOSED 02/08/20 ALLERGIES COMPAZINE: SEIZURES - ALLERGY VALIUM: NAUSEA - SIDE EFFECTS SURGICAL HISTORY LEFT SHOULDER SURGERY 11/2011 ABCESS FROM SPIDER BITE 1987 LASIX EYE SURGERY FAMILY HISTORY FATHER: , DIAGNOSED WITH OTHER MALIGNANT NEOPLASM OF UNSPECIFIED SITE MOTHER: SIBLINGS: UNSPECIFIED HEART DISEASE, UNSPECIFIED CEREBRAL ARTERY OCCLUSION WITH CEREBRAL INFARCTION 2 BROTHER(S) . 1 SON(S) , 2 DAUGHTER(S) . DAUGHTER WITH MIGRAINES, CEREBRAL PALSY. SOCIAL HISTORY GENERAL: TOBACCO USE ARE YOU A:FORMER SMOKER HOW LONG HAS IT BEEN SINCE YOU LAST SMOKED?> 10 YEARS EDUCATION LEVEL OF EDUCATION:COLLEGE DIET: GLUTEN FREE. LANGUAGE LANGUAGES SPOKEN:DIVEHI NEW PATIENT PAIN DIARY TODAY'S VISIT 02/08/2020 PATIENT DESCRIBES PAIN :ACHING, HAVE IT ALL THE TIME, SORE FROM 0-10, WHAT LEVEL IS YOUR PAIN TODAY?2 PRECIPITATING FACTORS PT STATES THAT HE IS ABLE TO FUNCTION NORMALLY WITHOUT ISSUES, CHRONIC ISSUE, PT STATES THAT HE HAD INCREASE IN PAIN AFTER SNOW REMOVAL ALLEVIATING FACTORS RELAXING, REST HAVE YOU BEEN SICK IN THE LAST WEEK (COLD, COUGH, FEVER, FLU, ETC)YES DO YOU TAKE ANY BLOOD THINNERS?NO NO FEVER, NO COUGH, PHLEGM, SORE THROAT, SO SYMPTOMS SINCE YESTERDAY DO YOU HAVE ANY RASHES OR OPEN SORES?NO ARE YOU ALLERGIC TO SHELLFISH OR IV DYE?NO ARE YOU DIABETIC?NO DO YOU HAVE A PACEMAKER OR DEFIBRILLATOR?NO ANY NEW PROBLEMS WITH MEDICINES OR NEW ALLERGIESNO ANY NEW PATTERNS OF PAIN OR NUMBNESS?NO ANY CHANGE IN YOUR MEDICAL CONDITION?NO HAVE YOU FALLEN IN THE LAST 6 MONTHS?YES PT STATES THAT HE FELL WHILE AT THE STORE, NO INJURY, NO REPORT TO ED. DO YOU USE ANY TYPE OF TOBACCO (SMOKE, SMOKELESS, CHEW, ETC.)NO ARE YOU ABUSED, NEGLECTED, OR IN AN UNSAFE ENVIRONMENT?NO DO YOU HAVE THOUGHTS OF HURTING YOURSELF OR SOMEONE ELSE?NO DO YOU NEED ANY PRESCRIPTIONS?NO DO YOU HAVE ANY OTHER QUESTIONS OR CONCERNS?NO RECREATIONAL DRUG USE DRUG USE?NO EXERCISE: WALKS. LEARNING BARRIERS / SPECIAL NEEDS BARRIERS TO LEARNING?NO HEARING IMPAIRED?NO VISION IMPAIRED?YES COGNITIVELY IMPAIRED?NO :CORRECTIVE LENSES READINESS TO LEARN?YES LEARNING PREFERENCES?NO LEARNING CAPABILITIES PRESENT?YES EMOTIONAL BARRIERS?NO PT REPORTS HISTORY OF ANXIETY/DEPRESSION SPECIAL DEVICES?NO ORACLE E BUSINESS DEVELOPER NEEDED?NO PAIN CLINIC PFS, CLERGY, PUBLIC HEALTH REFERRALS WAS THE PROVIDER NOTIFIED OF ANY PERTINENT INFO?YES HAS THE PATIENT BEEN EDUCATED REGARDING HIS/HER PLAN OF CARE?YES HAS THE PATIENT BEEN EDUCATED REGARDING PAIN, THE RISK FOR PAIN, THE IMPORTANCE OF EFFECTIVE PAIN MANAGEMENT, AND THE PAIN ASSESSMENT PROCESS?YES LATEX QUESTIONNAIRE LATEX ALLERGY : HAVE YOU EVER DEVELOPED ANY TYPE OF REACTION AFTER HANDLING LATEX PRODUCTS SUCH RUBBER GLOVES, CONDOMS, DIAPHRAGMS, BALLOONS, SOCKS, OR UNDERWEAR?NO LATEX ALLERGY : HAVE YOU EVER DEVELOPED ANY TYPE OF REACTION DURING OR AFTER DENTAL APPOINTMENT, VAGINAL/RECTAL EXAMINATION, SURGICAL PROCEDURE, OR ANY OTHER EXPOSURE?NO LATEX RISK : HAVE YOU EVER HAD ANY DIFFICULTY BREATHING OR HIVES AFTER EATING OR HANDLING ANY FRUITS, OR VEGETABLES; SUCH KIWI, BANANAS, STONE FRUITS, OR CHESTNUTSNO LATEX RISK : DO YOU HAVE A PREVIOUS PERSONAL HISTORY OF MORE THAN NINE SURGERIES, SPINA BIFIDA, OR REPEATED CATHERIZATIONS? NO LATEX RISK : ARE YOU FREQUENTLY EXPOSED TO LATEX PRODUCTS IN YOUR OCCUPATION?NO DATE ASKED : 02/08/2020 CAFFEINE CAFFEINE USE?YES 1 CUP COFFEE DAILY ADVANCE DIRECTIVE ADVANCE DIRECTIVE DISCUSSED WITH PATIENT:YES PT DOES HAVE HCP CATHRYN ESTEBAN SHINTO [id number] ANGLICAN MARITAL STATUS: . ALCOHOL SCREENING DID YOU HAVE A DRINK CONTAINING ALCOHOL IN THE PAST YEAR?YES HOW OFTEN DID YOU HAVE SIX OR MORE DRINKS ON ONE OCCASION IN THE PAST YEAR?NEVER (0 POINTS) HOW MANY DRINKS DID YOU HAVE ON A TYPICAL DAY WHEN YOU WERE DRINKING IN THE PAST YEAR?1 OR 2 (0 POINTS) HOW OFTEN DID YOU HAVE A DRINK CONTAINING ALCOHOL IN THE PAST YEAR?TWO TO FOUR TIMES A MONTH (2 POINTS) POINTS2 INTERPRETATIONNEGATIVE OCCUPATION: RETIRED. HOSPITALIZATION/MAJOR DIAGNOSTIC PROCEDURE BACK PAIN 2006 SLIP AND FALL ON ICE INJURED BACK/HEAD 2008 LOW BACK PAIN 2017 REVIEW OF SYSTEMS REVIEWED BY: PROVIDER: HITESH ANDERSEN . CONSTITUTIONAL: ANY CHANGE IN YOUR MEDICAL CONDITION? YES, PT STATES THAT HE WAS RECENTLY DIAGNOSED WITH BILATERAL INGUINAL HERNIA . CHILLS NO . FEVER NO . INFECTION: DO YOU HAVE NEW INFECTIONS? NO . DO YOU HAVE HISTORY OF MRSA? NO . MUSCULOSKELETAL: ANY NEW PATTERNS OF PAIN OR NUMBNESS? NO . GASTROENTEROLOGY: ANY NEW CHANGE IN BOWEL CONTROL? NO . GENITOURINARY: ANY NEW CHANGE IN BLADDER CONTROL? NO . IS THERE A CHANCE YOU COULD BE ? NO . HEMATOLOGY/LYMPH: DO YOU TAKE ANY BLOOD THINNERS? (FOR EXAMPLE- COUMADIN, PLAVIX, AGGRENOX, PLATEL, PRADAXA, OR XARELTO) NO . WHEN WAS YOUR LAST DOSE? DATE: TIME: . NEUROLOGY: HAVE YOU FALLEN IN THE PAST 12 MONTHS? NO . ANY NEW EXTREMITY NUMBNESS OR WEAKNESS? NO . CARDIOLOGY: DO YOU HAVE A PACEMAKER OR DEFIBRILLATOR? NO . RESPIRATORY: HAVE YOU BEEN SICK IN THE PAST WEEK? NO . FEVER NO . FLU LIKE SYMPTOMS? NO . COUGH NO . INTEGUMENTARY: DO YOU HAVE ANY RASHES OR OPEN SORES? NO . ALLERGIC/IMMUNO: ARE YOU ALLERGIC TO IV DYE? NO . ANY NEW ALLERGIES? NO . PSYCHIATRIC: DO YOU HAVE THOUGHTS OF HURTING YOURSELF OR SOMEONE ELSE? NO . ARE YOU ABUSED, NEGLECTED, OR IN AN UNSAFE ENVIRONMENT? NO . ENDOCRINOLOGY: ARE YOU DIABETIC? NO . OTHER: DO YOU NEED ANY PRESCRIPTIONS? NO . IF YES, PLEASE LIST: ____ . ANY NEW PROBLEMS WITH YOUR MEDICATIONS? NO . WHEN DID YOU LAST EAT? ____ . WHEN DID YOU LAST DRINK? ____ . WHAT DID YOU LAST DRINK? ____ . NAME OF PERSON DRIVING YOU HOME? ____ . DO YOU HAVE ANY OTHER QUESTIONS OR CONCERNS NO . VITAL SIGNS WT 169 LBS, HT 58 IN, BMI 35.32 INDEX, BP 127/82 MM HG, HR 61 /MIN, RR 18 /MIN, TEMP 95.6 F, OXYGEN SAT % 93%, SAFE IN ENV? (Y/N) Y, NA INITIALS AW 0915, REVIEWED BY: VIVEK. ASSESSMENTS LUMBAR FACET ARTHROPATHY - M47.816 (PRIMARY) TREATMENT LUMBAR FACET ARTHROPATHY NOTES: CONTINUE HOME EXERCISE AND STRETCHING PROGRAM. PREVENTIVE MEDICINE PAIN CLINIC TEACHING: THE PATIENT HAS BEEN EDUCATED REGARDING PAIN, THE RISK FOR PAIN, THE IMPORTANCE OF EFFECTIVE PAIN MANAGEMENT, AND THE PAIN ASSESSMENT PROCESS. : REVIEWED AND DISCUSSED DISCHARGE INSTRUCTIONS WITH PT,. PT ACKNOWLEDGED UNDERSTANDING. VIVEK PROCEDURE CODES FA211 ESTABILISHED PATIENT [facility] CHARGE DISPOSITION & COMMUNICATION FOLLOW UP 2 MONTHS ELECTRONICALLY SIGNED BY NATHALY AVILA ON 02/22/2020 AT 02:55 PM EDT DISCLAIMER : THIS IS A VISIT SUMMARY EXTRACTED FROM THE [employer] CHART. IT IS NOT A COPY OF THE [employer] PROGRESS NOTE. ELIANE
== END ==
LOC: M PAIN 09:00
PROVIDERS: ATTEND Nurse Practitioner Family
DX: M47.816 Spondylosis without myelopathy or radiculopathy, lumbar region (principal); Z79.891 Long term (current) use of opiate analgesic; Z79.899 Other long term (current) drug therapy; Z87.891 Personal history of nicotine dependence; Z88.5 Allergy status to narcotic agent; Z88.8 Allergy status to other drugs, medicaments and biological substances

== ENCOUNTER → 2020-09-06 | Outpatient (CLI) | payer OTHER ==
--- NOTE | 2020-09-07 09:56 | ECWPNPC ---
PATIENT NAME: LALA RODRIGUEZ : 1960 GENDER: MALE VISIT DATE: 09/06/2020 DISCHARGE DATE: 09/06/20939 VISIT LOCKED DATE TIME: PHYSICIAN: HITESH WOODS RESOURCE: HITESH WOODS REASON FOR APPOINTMENT 1. BACK PAIN HISTORY OF PRESENT ILLNESS DEPRESSION SCREENING: PHQ-2 (2015 EDITION) LITTLE INTEREST OR PLEASURE IN DOING THINGS?NOT AT ALL TOTAL SCORE0 GENERAL: HERE FOR FOLLOW-UP OF CHRONIC LOW BACK PAIN. HAVING EPISODES OF SEVERE MAINLY RIGHT-SIDED LOW BACK PAIN PERIODICALLY. HE AVOIDS DOING CERTAIN ACTIVITIES DUE TO FEAR OF INCREASE IN RIGHT LOW BACK PAIN. HAS RESPONDED WELL TO THERAPEUTIC LUMBAR BLOCKS IN THE PAST. WE DISCUSSED RADIOFREQUENCY PROCEDURE AND DIAGNOSTIC TESTING. AT THIS POINT HE IS WORKING ON GETTING HIS ABDOMINAL HERNIA-EVALUATED AND TREATED BY THE [facility] LOCAL SURGEON. UNDER A LOT OF STRESS RIGHT NOW AND GOING THROUGH A DIVORCE. AT THIS POINT HE'S BEEN DEALING WITH HIS LOW BACK PAIN WITH PERIODIC CONSERVATIVE CARE. HE HAS OPTED TO WAIT 3 MONTHS AND DISCUSS POSSIBILITY OF INTERVENTIONAL THERAPY. -. NURSING NOTE: - -. FALL RISK SCREENING: SCREENING :NO FALLS REPORTED IN THE LAST YEAR USES A CANE SO THAT HE DOES NOT FALL OR TRIP OFTEN PAIN SCREENING: PATIENT HAS A COMPLAINT OF ACUTE OR CHRONIC PAIN :YES LOCATION OF PAIN:LOW BACK RIGHT SIDE MORE THEN THE LEFT INTENSITY OF PAIN (SCALE OF 1 TO 10):2 WHAT DOES YOUR PAIN FEEL LIKE:ACHING SHARP SHOOTING PAIN WHEN HE HAS IT BAD DURATION:PERIODIC PAIN IS INCREASED BY:ACTIVITIES PAIN IS DECREASED BY:USE OF PAIN MEDICATIONS PAIN CENTER INTAKE QUESTIONS: DO YOU HAVE A HISTORY OF MRSA? :NO DO YOU TAKE A BLOOD THINNERS? :NO DO YOU HAVE ANY BLEEDING DISORDERS? :NO ANY NEW NUMBNESS OR WEAKNESS IN YOUR LEGS OR ARMS? :NO ANY PACEMAKER,DEFIBRILLATOR, OR DORSAL COLUMN STIMULATOR? :NO DO YOU HAVE ANY RASHES OR OPEN SORES? :NO ARE YOU ALLERGIC TO IV DYE? :NO ARE YOU DIABETIC? :NO ANY NEW PROBLEMS WITH YOUR MEDICATIONS? :NO HAVE YOU RECEIVED A VACCINE IN THE PAST 30 DAYS? :NO DO YOU PLAN TO RECEIVE A VACCINE IN THE NEXT 21 DAYS? :YES FLU VAC AT SOME PINT AND THE COVID SHOT IF THEY GET ONE DO YOU NEED ANY PRESCRIPTION? :NO DO YOU TAKE ANY IMMUNOSUPPRESSIVE MEDICATIONS? :NO IS THERE A CHANCE YOU COULD BE ? :NO ARE YOU BREAST FEEDING? :NO CURRENT MEDICATIONS TAKING AMBIEN 5 MG TABLET 1 TABLET AT BEDTIME ORALLY ONCE A DAY TAKING CRESTOR 40 MG TABLET 1 TABLET ORALLY ONCE A DAY TAKING MAY HAVE - - CBD OIL CAPSULE 20MG DAILY TAKING MAY HAVE - - CBD VAPE NEEDED TAKING HYDROXYZINE HCL 10 MG TABLET DIRECTED ORALLY BID TAKING LIDOCAINE & ADHESIVE SHEET 5 % KIT DIRECTED EXTERNALLY TAKING CENTRUM SILVER - TABLET DIRECTED ORALLY TAKING PROBIOTIC - CAPSULE DIRECTED ORALLY TAKING OXYCODONE HCL 5 MG TABLET 1 TABLET NEEDED ORALLY BID TAKING REMERON 30 MG TABLET 1 TABLET AT BEDTIME ORALLY ONCE A DAY TAKING TOPAMAX 50 MG TABLET 1 TABLET ORALLY TID TAKING ZANAFLEX 4 MG TABLET 1 TABLET NEEDED ORALLY BID TAKING MAY USE - - THC ORAL SPRAY , NOTES: PT USES THC ORAL SPRAY, POWDER, AND VAPE TAKING MAXALT 10 MG TABLET 1 TABLET ORALLY ONCE DAILY NEEDED NOT-TAKING IMITREX 100 MG TABLET 1 TABLET AT LEAST 2 HOURS BETWEEN DOSES NEEDED ORALLY TWICE A DAY NOT-TAKING CARBOXYMETHYLCELLULOSE SODIUM 0.5 % SOLUTION DIRECTED OPHTHALMIC MEDICATION LIST REVIEWED AND RECONCILED WITH THE PATIENT PAST MEDICAL HISTORY SLEEP APNEA CHRONIC BACK PAIN MIGRAINES ANXIETY/DEPRESSION TINNITIS INGUINAL HERNIA BILATERAL DIAGNOSED 02/08/20 ALLERGIES COMPAZINE: SEIZURES - ALLERGY VALIUM: NAUSEA - SIDE EFFECTS SURGICAL HISTORY LEFT SHOULDER SURGERY 11/2011 ABCESS FROM SPIDER BITE 1987 [place]AS[place] EYE SURGERY FAMILY HISTORY FATHER: , DIAGNOSED WITH OTHER MALIGNANT NEOPLASM OF UNSPECIFIED SITE MOTHER: SIBLINGS: UNSPECIFIED HEART DISEASE, UNSPECIFIED CEREBRAL ARTERY OCCLUSION WITH CEREBRAL INFARCTION 2 BROTHER(S) . 1 SON(S) , 2 DAUGHTER(S) . DAUGHTER WITH MIGRAINES, CEREBRAL PALSY. SOCIAL HISTORY GENERAL: TOBACCO USE ARE YOU A:FORMER SMOKER HOW LONG HAS IT BEEN SINCE YOU LAST SMOKED?> 10 YEARS LATEX QUESTIONNAIRE LATEX ALLERGY : HAVE YOU EVER DEVELOPED ANY TYPE OF REACTION AFTER HANDLING LATEX PRODUCTS SUCH RUBBER GLOVES, CONDOMS, DIAPHRAGMS, BALLOONS, SOCKS, OR UNDERWEAR?NO LATEX ALLERGY : HAVE YOU EVER DEVELOPED ANY TYPE OF REACTION DURING OR AFTER DENTAL APPOINTMENT, VAGINAL/RECTAL EXAMINATION, SURGICAL PROCEDURE, OR ANY OTHER EXPOSURE?NO LATEX RISK : HAVE YOU EVER HAD ANY DIFFICULTY BREATHING OR HIVES AFTER EATING OR HANDLING ANY FRUITS, OR VEGETABLES; SUCH KIWI, BANANAS, STONE FRUITS, OR CHESTNUTSNO LATEX RISK : DO YOU HAVE A PREVIOUS PERSONAL HISTORY OF MORE THAN NINE SURGERIES, SPINA BIFIDA, OR REPEATED CATHERIZATIONS? NO LATEX RISK : ARE YOU FREQUENTLY EXPOSED TO LATEX PRODUCTS IN YOUR OCCUPATION?NO DATE ASKED : 09/06/2020 ALCOHOL SCREENING DID YOU HAVE A DRINK CONTAINING ALCOHOL IN THE PAST YEAR?YES HOW OFTEN DID YOU HAVE SIX OR MORE DRINKS ON ONE OCCASION IN THE PAST YEAR?NEVER (0 POINTS) HOW MANY DRINKS DID YOU HAVE ON A TYPICAL DAY WHEN YOU WERE DRINKING IN THE PAST YEAR?1 OR 2 (0 POINTS) HOW OFTEN DID YOU HAVE A DRINK CONTAINING ALCOHOL IN THE PAST YEAR?TWO TO FOUR TIMES A MONTH (2 POINTS) POINTS2 INTERPRETATIONNEGATIVE RECREATIONAL DRUG USE DRUG USE?NO CAFFEINE CAFFEINE USE?YES 1 CUP COFFEE DAILY MORAVIAN [id number] [employer] LANGUAGE LANGUAGES SPOKEN:NEW ZEALANDER EDUCATION LEVEL OF EDUCATION:COLLEGE LEARNING BARRIERS / SPECIAL NEEDS BARRIERS TO LEARNING?NO HEARING IMPAIRED?NO VISION IMPAIRED?YES COGNITIVELY IMPAIRED?NO :CORRECTIVE LENSES READINESS TO LEARN?YES LEARNING PREFERENCES?NO LEARNING CAPABILITIES PRESENT?YES EMOTIONAL BARRIERS?NO PT REPORTS HISTORY OF ANXIETY/DEPRESSION SPECIAL DEVICES?NO COOK PICKLED MEAT NEEDED?NO DOMESTIC VIOLENCE DO YOU FEEL SAFE IN YOUR ENVIRONMENT?YES OCCUPATION: RETIRED. DIET: GLUTEN FREE. EXERCISE: WALKS. MARITAL STATUS: . PAIN CLINIC PFS, CLERGY, PUBLIC HEALTH REFERRALS WAS THE PROVIDER NOTIFIED OF ANY PERTINENT INFO?YES HAS THE PATIENT BEEN EDUCATED REGARDING HIS/HER PLAN OF CARE?YES HAS THE PATIENT BEEN EDUCATED REGARDING PAIN, THE RISK FOR PAIN, THE IMPORTANCE OF EFFECTIVE PAIN MANAGEMENT, AND THE PAIN ASSESSMENT PROCESS?YES ADVANCE DIRECTIVE ADVANCE DIRECTIVE DISCUSSED WITH PATIENT:YES PT DOES HAVE HCP CATHRYN ESTEBAN HOSPITALIZATION/MAJOR DIAGNOSTIC PROCEDURE BACK PAIN 2006 SLIP AND FALL ON ICE INJURED BACK/HEAD 2008 LOW BACK PAIN 2017 REVIEW OF SYSTEMS CONSTITUTIONAL: ANY RECENT FEVER NO . CHILLS NO . WEIGHT CHANGE OF UNKNOWN REASONS NO . GASTROENTEROLOGY: NEW UNEXPLAINABLE CHANGES IN BOWEL CONTROL NO . CONSTIPATION NO . GENITOURINARY: ANY NEW CHANGE IN BLADDER CONTROL? NO . NEUROLOGY: NEW ONSET DIZZINESS OR NEUROLOGICAL CHANGES NOT MENTIONED NO . NEW NUMBNESS OR PAIN PATTERNS NOT MENTIONED AND PERTINENT TO TODAY'S VISIT NO . CARDIOLOGY: NEW CHEST PRESSURE NO . NEW CHEST PAIN NO . RESPIRATORY: UNEXPLAINABLE COUGH NO . NEW SHORTNESS OF BREATH NO . VITAL SIGNS WT 167 LBS, HT 58 IN, BMI 34.90 INDEX, BP 124/68 MM HG, HR 85 /MIN, RR 18 /MIN, TEMP 96.9 F, OXYGEN SAT % 98%, SAFE IN ENV? (Y/N) YES, NA INITIALS OR 09:07, REVIEWED BY: [place]. EXAMINATION GENERAL EXAMINATION: GENERALAWAKE,ALERT ,PLEASANT . PSYCHAFFECT NORMAL . LUNGS:LUNG VEGA ARE CLEAR TO AUSCULTATION BILATERALLY. GOOD MOVEMENT OF AIR . HEART:S1, S2 IN A REGULAR RATE AND RHYTHM. NO SIGNIFICANT MURMURS, RUBS OR GALLOPS NOTED . ASSESSMENTS LUMBAR FACET ARTHROPATHY - M47.816 (PRIMARY) TREATMENT LUMBAR FACET ARTHROPATHY NOTES: CONTINUE HOME EXERCISE AND STRETCHING. PREVENTIVE MEDICINE (MALE) PREVENTIVE WELLNESS PLAN: TODAY'S VISIT PATIENT PRESENTS TODAY FOR: F/U WITH HITESH IN 3MONTHS PROCEDURE CODES FA211 ESTABILISHED PATIENT [facility] FACILITY CHARGE DISPOSITION & COMMUNICATION FOLLOW UP 3 MONTHS (REASON: LOW BACK PAIN) ELECTRONICALLY SIGNED BY NATHALY AVILA ON 09/07/2020 AT 09:00 AM EDT DISCLAIMER : THIS IS A VISIT SUMMARY EXTRACTED FROM THE [employer] CHART. IT IS NOT A COPY OF THE [employer] PROGRESS NOTE. ELIANE
== END ==
LOC: M PAIN 09:00
PROVIDERS: ATTEND Nurse Practitioner Family
DX: M47.816 Spondylosis without myelopathy or radiculopathy, lumbar region (principal); G47.30 Sleep apnea, unspecified; G43.909 Migraine, unspecified, not intractable, without status migrainosus; F41.9 Anxiety disorder, unspecified; F32.9 Major depressive disorder, single episode, unspecified; K40.20 Bilateral inguinal hernia, without obstruction or gangrene, not specified as recurrent; Z87.891 Personal history of nicotine dependence; Z79.891 Long term (current) use of opiate analgesic; Z79.899 Other long term (current) drug therapy; Z88.5 Allergy status to narcotic agent; Z88.8 Allergy status to other drugs, medicaments and biological substances

== ENCOUNTER → 2020-12-07 | Outpatient (CLI) | payer OTHER ==
--- NOTE | 2020-12-08 07:32 | ECWPNPC ---
PATIENT NAME: LALA RODRIGUEZ : 1960 GENDER: MALE VISIT DATE: 12/07/2020 DISCHARGE DATE: 12/07/20 1006 VISIT LOCKED DATE TIME: PHYSICIAN: HITESH WOODS RESOURCE: HITESH WOODS REASON FOR APPOINTMENT 1. LOW BACK PAIN HISTORY OF PRESENT ILLNESS GENERAL: HERE FOR FOLLOW-UP OF CHRONIC LOW BACK PAIN. CONTINUES TO HAVE LOW BACK PAIN ISSUES BUT CHIEF COMPLAINT IS LEFT ARM NUMBNESS AND TINGLING AND ABDOMINAL PAIN. CONTINUES TO WAIT FOR ABDOMINAL HERNIA REPAIR SURGERY. FOLLOWS WITH [facility] NEUROLOGY FOR LEFT ARM PAIN AND NUMBNESS. WE HAVE DISCUSSED DOING DIAGNOSTIC LUMBAR FACET AND CONSIDERING RADIOFREQUENCY BUT PATIENT CONTINUES TO HAVE OTHER MEDICAL ISSUES THAT PREVENT HIM FROM DOING THIS.-. FALL RISK SCREENING: SCREENING :TWO OR MORE FALLS WITHOUT INJURY IN THE PAST YEAR FELL ON ICE YESTERDAY AND HIT HEAD. PATIENT STATES HE DID NOT LOSE CONSCIOUSNESS BUT FELT "DAZED" AND DID NOT REPORT TO THE EMERGENCY ROOM. ALSO FELL OUTSIDE TUB IN OCTOBER PAIN SCREENING: PATIENT HAS A COMPLAINT OF ACUTE OR CHRONIC PAIN :YES LOCATION OF PAIN:NECK, LEFT SHOULDER, LOW BACK INTENSITY OF PAIN (SCALE OF 1 TO 10):2 WHAT DOES YOUR PAIN FEEL LIKE:ACHING, SORE TINGLING IN LEFT ARM DURATION:CONSTANT PAIN IS INCREASED BY:ACTIVITIES EXERCISE PAIN IS DECREASED BY:USE OF PAIN MEDICATIONS, OTHERS HEAT, WHIRLPOOL TUB NURSING NOTE: -. PAIN CENTER INTAKE QUESTIONS: DO YOU HAVE A HISTORY OF MRSA? :NO DO YOU TAKE A BLOOD THINNERS? :NO DO YOU HAVE ANY BLEEDING DISORDERS? :NO ANY NEW NUMBNESS OR WEAKNESS IN YOUR LEGS OR ARMS? :YES NEW NUMBESS AND TINGLING IN LEFT ARM ANY PACEMAKER,DEFIBRILLATOR, OR DORSAL COLUMN STIMULATOR? :NO DO YOU HAVE ANY RASHES OR OPEN SORES? :NO ARE YOU ALLERGIC TO IV DYE? :NO ARE YOU DIABETIC? :NO ANY NEW PROBLEMS WITH YOUR MEDICATIONS? :NO HAVE YOU RECEIVED A VACCINE IN THE PAST 30 DAYS? :NO DO YOU PLAN TO RECEIVE A VACCINE IN THE NEXT 21 DAYS? :YES IF OFFERED COVID VACCINE WANTS TO TAKE IT DO YOU NEED ANY PRESCRIPTION? :NO DO YOU TAKE ANY IMMUNOSUPPRESSIVE MEDICATIONS? :NO IS THERE A CHANCE YOU COULD BE ? :NO ARE YOU BREAST FEEDING? :NO CURRENT MEDICATIONS TAKING AMBIEN 5 MG TABLET 1 TABLET AT BEDTIME ORALLY ONCE A DAY, NOTES: TAKES OCCASIONALLY TAKING CRESTOR 40 MG TABLET 1 TABLET ORALLY ONCE A DAY TAKING MAY HAVE - - CBD OIL CAPSULE 20MG DAILY TAKING MAY HAVE - - CBD VAPE NEEDED TAKING HYDROXYZINE HCL 10 MG TABLET DIRECTED ORALLY BID TAKING LIDOCAINE & ADHESIVE SHEET 5 % KIT DIRECTED EXTERNALLY TAKING CENTRUM SILVER - TABLET DIRECTED ORALLY TAKING PROBIOTIC - CAPSULE DIRECTED ORALLY DAILY TAKING OXYCODONE HCL 5 MG TABLET 1 TABLET NEEDED ORALLY BID TAKING REMERON 30 MG TABLET 1 TABLET AT BEDTIME ORALLY ONCE A DAY TAKING TOPAMAX 50 MG TABLET 1 TABLET ORALLY TID TAKING ZANAFLEX 4 MG TABLET 1 TABLET NEEDED ORALLY BID TAKING MAY USE - - THC ORAL SPRAY , NOTES: PT USES THC ORAL SPRAY, POWDER, AND VAPE TAKING MAXALT 10 MG TABLET 1 TABLET ORALLY ONCE DAILY NEEDED NOT-TAKING IMITREX 100 MG TABLET 1 TABLET AT LEAST 2 HOURS BETWEEN DOSES NEEDED ORALLY TWICE A DAY NOT-TAKING CARBOXYMETHYLCELLULOSE SODIUM 0.5 % SOLUTION DIRECTED OPHTHALMIC MEDICATION LIST REVIEWED AND RECONCILED WITH THE PATIENT PAST MEDICAL HISTORY SLEEP APNEA CHRONIC BACK PAIN MIGRAINES ANXIETY/DEPRESSION TINNITIS INGUINAL HERNIA BILATERAL DIAGNOSED 02/08/20 SHOULDER/ARM PAIN NECK PAIN ALLERGIES COMPAZINE: SEIZURES - ALLERGY VALIUM: NAUSEA - SIDE EFFECTS SOCIAL HISTORY GENERAL: TOBACCO USE ARE YOU A:FORMER SMOKER HOW LONG HAS IT BEEN SINCE YOU LAST SMOKED?> 10 YEARS LATEX QUESTIONNAIRE LATEX ALLERGY : HAVE YOU EVER DEVELOPED ANY TYPE OF REACTION AFTER HANDLING LATEX PRODUCTS SUCH RUBBER GLOVES, CONDOMS, DIAPHRAGMS, BALLOONS, SOCKS, OR UNDERWEAR?NO LATEX ALLERGY : HAVE YOU EVER DEVELOPED ANY TYPE OF REACTION DURING OR AFTER DENTAL APPOINTMENT, VAGINAL/RECTAL EXAMINATION, SURGICAL PROCEDURE, OR ANY OTHER EXPOSURE?NO LATEX RISK : HAVE YOU EVER HAD ANY DIFFICULTY BREATHING OR HIVES AFTER EATING OR HANDLING ANY FRUITS, OR VEGETABLES; SUCH KIWI, BANANAS, STONE FRUITS, OR CHESTNUTSNO LATEX RISK : DO YOU HAVE A PREVIOUS PERSONAL HISTORY OF MORE THAN NINE SURGERIES, SPINA BIFIDA, OR REPEATED CATHERIZATIONS? NO LATEX RISK : ARE YOU FREQUENTLY EXPOSED TO LATEX PRODUCTS IN YOUR OCCUPATION?NO DATE ASKED : 12/07/2020 ALCOHOL USE: YES. ALCOHOL SCREENING DID YOU HAVE A DRINK CONTAINING ALCOHOL IN THE PAST YEAR?YES HOW OFTEN DID YOU HAVE SIX OR MORE DRINKS ON ONE OCCASION IN THE PAST YEAR?NEVER (0 POINTS) HOW MANY DRINKS DID YOU HAVE ON A TYPICAL DAY WHEN YOU WERE DRINKING IN THE PAST YEAR?1 OR 2 (0 POINTS) HOW OFTEN DID YOU HAVE A DRINK CONTAINING ALCOHOL IN THE PAST YEAR?TWO TO FOUR TIMES A MONTH (2 POINTS) POINTS2 INTERPRETATIONNEGATIVE RECREATIONAL DRUG USE DRUG USE?NO PRESCRIBED MEDICAL MARIJ[place]NA CAFFEINE CAFFEINE USE?YES 1 CUP COFFEE DAILY [employer] [id number] [employer] LANGUAGE LANGUAGES SPOKEN:SERBIAN EDUCATION LEVEL OF EDUCATION:COLLEGE LEARNING BARRIERS / SPECIAL NEEDS CHANGE FROM LAST VISIT?YES BARRIERS TO LEARNING?NO HEARING IMPAIRED?NO VISION IMPAIRED?YES :CORRECTIVE LENSES COGNITIVELY IMPAIRED?NO READINESS TO LEARN?YES LEARNING PREFERENCES?NO LEARNING CAPABILITIES PRESENT?YES EMOTIONAL BARRIERS?NO PT REPORTS HISTORY OF ANXIETY/DEPRESSION 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 DIET: GLUTEN FREE. EXERCISE: WALKS. MARITAL STATUS: . REVIEW OF SYSTEMS CONSTITUTIONAL: ANY RECENT FEVER NO . CHILLS NO . WEIGHT CHANGE OF UNKNOWN REASONS NO . GASTROENTEROLOGY: NEW UNEXPLAINABLE CHANGES IN BOWEL CONTROL NO . CONSTIPATION NO . GENITOURINARY: ANY NEW CHANGE IN BLADDER CONTROL? NO . NEUROLOGY: NEW ONSET DIZZINESS OR NEUROLOGICAL CHANGES NOT MENTIONED NO . NEW NUMBNESS OR PAIN PATTERNS NOT MENTIONED AND PERTINENT TO TODAY'S VISIT NO . CARDIOLOGY: NEW CHEST PRESSURE NO . NEW CHEST PAIN NO . RESPIRATORY: UNEXPLAINABLE COUGH NO . NEW SHORTNESS OF BREATH NO . VITAL SIGNS WT 171 LBS, HT 58 IN, BMI 35.74 INDEX, BP 146/89 MM HG, HR 79 /MIN, RR 18 /MIN, TEMP 98.2 F, OXYGEN SAT % 97, SAFE IN ENV? (Y/N) YES, REVIEWED BY: [employer]. LAWANDA DARLING. EXAMINATION GENERAL EXAMINATION: GENERALAWAKE,ALERT ,PLEASANT . PSYCHAFFECT NORMAL . LUNGS:LUNG VEGA ARE CLEAR TO AUSCULTATION BILATERALLY. GOOD MOVEMENT OF AIR . HEART:S1, S2 IN A REGULAR RATE AND RHYTHM. NO SIGNIFICANT MURMURS, RUBS OR GALLOPS NOTED . ASSESSMENTS LUMBAR FACET ARTHROPATHY - M47.816 (PRIMARY) TREATMENT LUMBAR FACET ARTHROPATHY NOTES: PATIENT WILL CONTINUE CONSERVATIVE CARE. FOLLOW-UP IS SCHEDULED IN 3 MONTHS. WE'LL DISCUSS DIAGNOSTIC LUMBAR FACET BLOCK AT FOLLOW-UP. PROCEDURE CODES [id number] ESTABILISHED PATIENT [facility] FACILITY CHARGE DISPOSITION & COMMUNICATION FOLLOW UP 3 MONTHS (REASON: LOW BACK PAIN/CONSIDER [id number]) ELECTRONICALLY SIGNED BY NATHALY AVILA ON 12/07/2020 AT 10:59 AM EST DISCLAIMER : THIS IS A VISIT SUMMARY EXTRACTED FROM THE [employer] CHART. IT IS NOT A COPY OF THE [employer] PROGRESS NOTE. ELIANE
== END ==
LOC: M PAIN 09:00
PROVIDERS: ATTEND Nurse Practitioner Family
DX: M47.816 Spondylosis without myelopathy or radiculopathy, lumbar region (principal); G89.29 Other chronic pain; G47.30 Sleep apnea, unspecified; G43.909 Migraine, unspecified, not intractable, without status migrainosus; Z86.59 Personal history of other mental and behavioral disorders; Z87.891 Personal history of nicotine dependence; Z88.5 Allergy status to narcotic agent; Z88.8 Allergy status to other drugs, medicaments and biological substances; Z79.899 Other long term (current) drug therapy

== ENCOUNTER → 2021-02-28 | Outpatient (CLI) | payer OTHER ==
[~2021-02-28] MED LIST changes: +CRES40TA PO; +CVS1CAP2 PO; +MAXA10TA14 PO; +MULTTAB86 PO; +OXYC-517 PO
== END ==
LOC: M LABSMTC 09:23
PROVIDERS: ATTEND Anesthesiology
DX: Z01.812 Encounter for preprocedural laboratory examination (principal); Z20.822 Contact with and (suspected) exposure to COVID-19

== ENCOUNTER 2021-03-05 10:22 | Day surgery (SDC) | payer OTHER ==
[~2021-03-05] VITALS: Ht 172.7 cm; Wt 76.1 kg
[~2021-03-05 10:22] MED LIST changes: +CelecoXIB 400 MG CAP PO ONE; +LIDOCAINE 2% 100MG/5ML SDV (FOR ANES.) As Ordered ONE; +MIDAZOLAM INJ 2MG/2ML VIAL (J2250 PER 1MG) As Ordered ONE; +ONDANSETRON 4MG/2ML VIAL As Ordered ONE; +PHENYLephrine 500MCG 5ML (100MCG/ML) SYRINGE As Ordered ONE; +ROCURONIUM BROMIDE 50 MG/5 ML VIAL As Ordered ONE; +SUGAMMADEX SODIUM 500 MG/5 ML VIAL (BRIDION) As Ordered ONE; +ceFAZolin SOD 2 GM in IV 1 EA IV ONE; +dexameTHASONE 4 MG/ML 1ML VIAL (J1100 PER 1MG) As Ordered ONE; +ePHEDrine SULFATE 25 MG/5 ML(5MG/ML) SYRINGE As Ordered ONE; +fentaNYL 250 MCG/5 ML INJECTION (J3010) As Ordered ONE; +propofoL 200 MG/20 ML VIAL As Ordered ONE
[2021-03-05] MEDS ORDERED: LIDOCAINE 1% SDV 30ML VIAL As Ordered ONE (12:19)
[2021-03-05] MEDS ORDERED: BUPIVACAINE HCL 0.25% 30ML VIAL As Ordered ONE (12:19)
[2021-03-05] MEDS ORDERED: ACETAMINOPHEN 1000MG 100ML IV BTL (OFIRMEV) (J0131 PER 10MG) As Ordered ONE (12:56)
[2021-03-05] MEDS ORDERED: ROCURONIUM BROMIDE 50 MG/5 ML VIAL As Ordered ONE ×2 (13:00→15:31)
[2021-03-05] MEDS ORDERED: HYDROmorphone HCL 2 MG/ML 1ML VIAL (J1170) As Ordered ONE (13:48)
[2021-03-05] MEDS ORDERED: PERCOCET 5MG/325MG TAB PO PRN ×3 (16:35→20:25)
[2021-03-05] MEDS ORDERED: fentaNYL 100 MCG/2 ML INJECTION (J3010) IV PRN (16:35)
[2021-03-05] MEDS ORDERED: KETOROLAC 30 MG/ML 1ML VIAL IV PRN ×2 (16:35→20:25)
[2021-03-05] MEDS ORDERED: ONDANSETRON 4MG/2ML VIAL IV PRN ×2 (16:35→18:55)
[2021-03-05] MEDS ORDERED: METOCLOPRAMIDE INJ 10MG/2ML VIAL (J2765 PER 1) IV PRN ×2 (16:35→20:25)
[2021-03-05] MEDS ORDERED: LR 1,000 ML IV SCH (16:35)
--- NOTE | 2021-03-05 17:33 | ROOPDOC ---
[facility] Report Of Operation Report of Operation DATE OF PROCEDURE: 03/05/21 PREPROCEDURE DIAGNOSES: Left inguinal hernia possible right inguinal hernia. POSTPROCEDURE DIAGNOSES: Bilateral direct inguinal hernia, left cord lipoma, right suprapubic hernia containing bladder . PROCEDURE: Robotic-assisted repair of multiple bilateral inguinal hernias, s uprapubic hernia (rTAPP with 15x10 progrip mesh on each side) SURGEON: Kaiser Miller MD TERRITORY SALES MANAGER: Chloe Mattson NP ANESTHESIA: General Endoctracheal Anesthesia. ESTIMATED BLOOD LOSS: Approximately 20 mL. COMPLICATIONS: none. REMARKS: . PROCEDURE NOTE: . DESCRIPTION OF PROCEDURE: . KAISER MILLER MD Mar 05, 2021 17:33
[2021-03-05] MEDS ORDERED: ACETAMINOPHEN TAB 650MG DOSE (2X325MG) PO PRN (20:25)
[2021-03-05] MEDS: TOPIRAMATE (TopAMAX) 25 MG TAB PO SCH (21:00)
[2021-03-05 21:36] VITALS: BP 138/77
[2021-03-05] MEDS: LR 1,000 ML IV SCH (21:47)
[2021-03-05 22:00] VITALS: BP 107/62
[2021-03-05 22:30] VITALS: BP 108/62
[2021-03-05 23:30] VITALS: BP 109/61
[2021-03-06 00:30] VITALS: BP 108/62
[2021-03-06 01:30] VITALS: BP 109/60
[2021-03-06 02:00] VITALS: BP 106/59
[2021-03-06] MEDS: ONDANSETRON 4MG/2ML VIAL IV SCH ×2 (05:26)
[2021-03-06 06:30] VITALS: BP 106/58
[2021-03-06] MEDS: TOPIRAMATE (TopAMAX) 25 MG TAB PO SCH (08:32)
[2021-03-06] MEDS: LR 1,000 ML IV SCH (08:34)
[2021-03-06] MEDS ORDERED: ZOFR4TAB16 PO (08:35)
[2021-03-06] MEDS ORDERED: PANTOPRAZOLE 40MG VIAL (C9113 PER 1) IV SCH (09:00)
[2021-03-06 10:00] VITALS: BP 105/57
== END 2021-03-06 12:34 | disposition home or self-care (01) ==
LOC: M SDC 10:22 → M MSPAV 21:36 → M SDC 03-06 12:34
PROVIDERS: ATTEND Surgery
DX: K40.20 Bilateral inguinal hernia, without obstruction or gangrene, not specified as recurrent (principal); G43.909 Migraine, unspecified, not intractable, without status migrainosus; G47.33 Obstructive sleep apnea (adult) (pediatric); E78.00 Pure hypercholesterolemia, unspecified; K58.8 Other irritable bowel syndrome; F43.10 Post-traumatic stress disorder, unspecified; F32.9 Major depressive disorder, single episode, unspecified; F41.9 Anxiety disorder, unspecified; Z88.8 Allergy status to other drugs, medicaments and biological substances; Z79.899 Other long term (current) drug therapy; E78.49 Other hyperlipidemia; M54.5 Low back pain; M54.2 Cervicalgia; Z87.891 Personal history of nicotine dependence
CPT/HCPCS: 49650; 88302; 96360; 96361; C1781; J0131; J0690; J1100; J1170; J2250; J2370; J2405; J2765; J3010; S2900

== ENCOUNTER → 2021-03-22 | Outpatient (CLI) | payer OTHER ==
[~2021-03-22] MED LIST changes: -CelecoXIB 400 MG CAP PO ONE; -LIDOCAINE 2% 100MG/5ML SDV (FOR ANES.) As Ordered ONE; -MIDAZOLAM INJ 2MG/2ML VIAL (J2250 PER 1MG) As Ordered ONE; -ONDANSETRON 4MG/2ML VIAL As Ordered ONE; -PHENYLephrine 500MCG 5ML (100MCG/ML) SYRINGE As Ordered ONE; -ROCURONIUM BROMIDE 50 MG/5 ML VIAL As Ordered ONE; -SUGAMMADEX SODIUM 500 MG/5 ML VIAL (BRIDION) As Ordered ONE; +ZOFR4TAB16 PO; -ceFAZolin SOD 2 GM in IV 1 EA IV ONE; -dexameTHASONE 4 MG/ML 1ML VIAL (J1100 PER 1MG) As Ordered ONE; -ePHEDrine SULFATE 25 MG/5 ML(5MG/ML) SYRINGE As Ordered ONE; -fentaNYL 250 MCG/5 ML INJECTION (J3010) As Ordered ONE; -propofoL 200 MG/20 ML VIAL As Ordered ONE
--- NOTE | 2021-03-24 02:43 | ECWPNPC ---
PATIENT NAME: LALA RODRIGUEZ : 1960 GENDER: MALE VISIT DATE: 03/22/2021 DISCHARGE DATE: 03/22/21954 VISIT LOCKED DATE TIME: PHYSICIAN: HITESH WOODS RESOURCE: HITESH WOODS REASON FOR APPOINTMENT 1. LOW BACK PAIN/CONSIDER LFBDX HISTORY OF PRESENT ILLNESS GENERAL: HERE FOR FOLLOW-UP OF CHRONIC LOW BACK PAIN. HAD LAPAROSCOPIC BILATERAL HERNIA REPAIR 4 WEEKS AGO. STATES LOW BACK PAIN HAS BEEN STABLE. RATING PAIN LEVEL A 2/10 VAS. REVIEWED MRI OF THE LS-SPINE AND DISCUSS TREATMENT PLAN. -. FALL RISK SCREENING: SCREENING 2 FALLS REPORTED IN THE LAST YEAR, NO INJURIES, NO FALL SNICE . PAIN SCREENING: PATIENT HAS A COMPLAINT OF ACUTE OR CHRONIC PAIN :YES LOCATION OF PAIN:LOW BACK INTENSITY OF PAIN (SCALE OF 1 TO 10):2 WHAT DOES YOUR PAIN FEEL LIKE:ACHING DURATION:CONTINOUS, CONSTANT PAIN IS INCREASED BY:ACTIVITIES PAIN IS DECREASED BY:OTHERS TENS UNT AND HEAT AND ICE NURSING NOTE: -. PAIN CENTER INTAKE QUESTIONS: DO YOU HAVE A HISTORY OF MRSA? :NO DO YOU TAKE A BLOOD THINNERS? :NO DO YOU HAVE ANY BLEEDING DISORDERS? :NO ANY NEW NUMBNESS OR WEAKNESS IN YOUR LEGS OR ARMS? :YES NEW NUMBESS AND TINGLING IN LEFT ARM ANY PACEMAKER,DEFIBRILLATOR, OR DORSAL COLUMN STIMULATOR? :NO DO YOU HAVE ANY RASHES OR OPEN SORES? :YES 3X HERMIA SURG ARE YOU ALLERGIC TO IV DYE? :NO ARE YOU DIABETIC? :NO ANY NEW PROBLEMS WITH YOUR MEDICATIONS? :NO HAVE YOU RECEIVED A VACCINE IN THE PAST 30 DAYS? :NO DO YOU PLAN TO RECEIVE A VACCINE IN THE NEXT 21 DAYS? :YES IF OFFERED COVID VACCINE WANTS TO TAKE IT DO YOU NEED ANY PRESCRIPTION? :NO DO YOU TAKE ANY IMMUNOSUPPRESSIVE MEDICATIONS? :NO IS THERE A CHANCE YOU COULD BE ? :NO ARE YOU BREAST FEEDING? :NO CURRENT MEDICATIONS TAKING AMBIEN 5 MG TABLET 1 TABLET AT BEDTIME ORALLY ONCE A DAY, NOTES: TAKES OCCASIONALLY TAKING CRESTOR 40 MG TABLET 1 TABLET ORALLY ONCE A DAY TAKING MAY HAVE - - CBD OIL CAPSULE 20MG DAILY TAKING MAY HAVE - - CBD VAPE NEEDED TAKING HYDROXYZINE HCL 10 MG TABLET DIRECTED ORALLY BID TAKING LIDOCAINE & ADHESIVE SHEET 5 % KIT DIRECTED EXTERNALLY TAKING CENTRUM SILVER - TABLET DIRECTED ORALLY TAKING PROBIOTIC - CAPSULE DIRECTED ORALLY DAILY TAKING OXYCODONE HCL 5 MG TABLET 1 TABLET NEEDED ORALLY BID TAKING REMERON 30 MG TABLET 1 TABLET AT BEDTIME ORALLY ONCE A DAY TAKING TOPAMAX 50 MG TABLET 1 TABLET ORALLY TID TAKING ZANAFLEX 4 MG TABLET 1 TABLET NEEDED ORALLY BID TAKING MAY USE - - THC ORAL SPRAY , NOTES: PT USES THC ORAL SPRAY, POWDER, AND VAPE TAKING MAXALT 10 MG TABLET 1 TABLET ORALLY ONCE DAILY NEEDED NOT-TAKING IMITREX 100 MG TABLET 1 TABLET AT LEAST 2 HOURS BETWEEN DOSES NEEDED ORALLY TWICE A DAY NOT-TAKING CARBOXYMETHYLCELLULOSE SODIUM 0.5 % SOLUTION DIRECTED OPHTHALMIC MEDICATION LIST REVIEWED AND RECONCILED WITH THE PATIENT PAST MEDICAL HISTORY SLEEP APNEA CHRONIC BACK PAIN MIGRAINES ANXIETY/DEPRESSION TINNITIS INGUINAL HERNIA BILATERAL DIAGNOSED 02/08/20 SHOULDER/ARM PAIN NECK PAIN ALLERGIES COMPAZINE: SEIZURES - ALLERGY VALIUM: NAUSEA - SIDE EFFECTS SURGICAL HISTORY LEFT SHOULDER SURGERY 11/2011 ABCESS FROM SPIDER BITE 1987 LASIX EYE SURGERY HERMIA SURG 2020 FAMILY HISTORY FATHER: , DIAGNOSED WITH OTHER MALIGNANT NEOPLASM OF UNSPECIFIED SITE MOTHER: SIBLINGS: UNSPECIFIED HEART DISEASE, UNSPECIFIED CEREBRAL ARTERY OCCLUSION WITH CEREBRAL INFARCTION 2 BROTHER(S) . 1 SON(S) , 2 DAUGHTER(S) . DAUGHTER WITH MIGRAINES, CEREBRAL PALSY. SOCIAL HISTORY GENERAL: TOBACCO USE ARE YOU A:FORMER SMOKER HOW LONG HAS IT BEEN SINCE YOU LAST SMOKED?> 10 YEARS LATEX QUESTIONNAIRE LATEX ALLERGY : HAVE YOU EVER DEVELOPED ANY TYPE OF REACTION AFTER HANDLING LATEX PRODUCTS SUCH RUBBER GLOVES, CONDOMS, DIAPHRAGMS, BALLOONS, SOCKS, OR UNDERWEAR?NO LATEX ALLERGY : HAVE YOU EVER DEVELOPED ANY TYPE OF REACTION DURING OR AFTER DENTAL APPOINTMENT, VAGINAL/RECTAL EXAMINATION, SURGICAL PROCEDURE, OR ANY OTHER EXPOSURE?NO LATEX RISK : HAVE YOU EVER HAD ANY DIFFICULTY BREATHING OR HIVES AFTER EATING OR HANDLING ANY FRUITS, OR VEGETABLES; SUCH KIWI, BANANAS, STONE FRUITS, OR CHESTNUTSNO LATEX RISK : DO YOU HAVE A PREVIOUS PERSONAL HISTORY OF MORE THAN NINE SURGERIES, SPINA BIFIDA, OR REPEATED CATHERIZATIONS? NO LATEX RISK : ARE YOU FREQUENTLY EXPOSED TO LATEX PRODUCTS IN YOUR OCCUPATION?NO DATE ASKED : 03/22/2021 ALCOHOL USE: YES. ALCOHOL SCREENING DID YOU HAVE A DRINK CONTAINING ALCOHOL IN THE PAST YEAR?YES HOW OFTEN DID YOU HAVE SIX OR MORE DRINKS ON ONE OCCASION IN THE PAST YEAR?NEVER (0 POINTS) HOW MANY DRINKS DID YOU HAVE ON A TYPICAL DAY WHEN YOU WERE DRINKING IN THE PAST YEAR?1 OR 2 (0 POINTS) HOW OFTEN DID YOU HAVE A DRINK CONTAINING ALCOHOL IN THE PAST YEAR?TWO TO FOUR TIMES A MONTH (2 POINTS) POINTS2 INTERPRETATIONNEGATIVE RECREATIONAL DRUG USE DRUG USE?NO PRESCRIBED MEDICAL MARIJUANA CAFFEINE CAFFEINE USE?YES 1 CUP COFFEE DAILY CONGREGATIONAL [id number] BUDDHISM LANGUAGE LANGUAGES SPOKEN:KOREAN EDUCATION LEVEL OF EDUCATION:COLLEGE LEARNING BARRIERS / SPECIAL NEEDS CHANGE FROM LAST VISIT?YES BARRIERS TO LEARNING?NO HEARING IMPAIRED?NO VISION IMPAIRED?YES :CORRECTIVE LENSES READING COGNITIVELY IMPAIRED?NO READINESS TO LEARN?YES LEARNING PREFERENCES?NO LEARNING CAPABILITIES PRESENT?YES EMOTIONAL BARRIERS?NO PT REPORTS HISTORY OF ANXIETY/DEPRESSION SPECIAL 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 DIET: GLUTEN FREE. EXERCISE: WALKS. MARITAL STATUS: . HOSPITALIZATION/MAJOR DIAGNOSTIC PROCEDURE BACK PAIN 2006 SLIP AND FALL ON ICE INJURED BACK/HEAD 2008 LOW BACK PAIN 2016 HERMIA SURG 2020 REVIEW OF SYSTEMS CONSTITUTIONAL: ANY RECENT FEVER NO . CHILLS NO . WEIGHT CHANGE OF UNKNOWN REASONS NO . GASTROENTEROLOGY: NEW UNEXPLAINABLE CHANGES IN BOWEL CONTROL NO . CONSTIPATION NO . GENITOURINARY: ANY NEW CHANGE IN BLADDER CONTROL? NO . NEUROLOGY: NEW ONSET DIZZINESS OR NEUROLOGICAL CHANGES NOT MENTIONED NO . NEW NUMBNESS OR PAIN PATTERNS NOT MENTIONED AND PERTINENT TO TODAY'S VISIT NO . CARDIOLOGY: NEW CHEST PRESSURE NO . PATIENT DENIES NO . RESPIRATORY: UNEXPLAINABLE COUGH NO . NEW SHORTNESS OF BREATH NO . VITAL SIGNS WT 163.2 LBS, HT 58 IN, BMI 34.11 INDEX, BP 115/79 MM HG, HR 87 /MIN, RR 18 /MIN, TEMP 97.7 F, OXYGEN SAT % 97%, SAFE IN ENV? (Y/N) YES, NA INITIALS HI 09:06T.BRENT KELLER. EXAMINATION GENERAL EXAMINATION: GENERALAWAKE,ALERT ,PLEASANT . PSYCHAFFECT NORMAL . LUNGS:LUNG VEGA ARE CLEAR TO AUSCULTATION BILATERALLY. GOOD MOVEMENT OF AIR . HEART:S1, S2 IN A REGULAR RATE AND RHYTHM. NO SIGNIFICANT MURMURS, RUBS OR GALLOPS NOTED . ASSESSMENTS LUMBAR FACET ARTHROPATHY - M47.816 (PRIMARY) TREATMENT LUMBAR FACET ARTHROPATHY NOTES: WILL CONSIDER INTERVENTIONAL THERAPY ONCE CLEARED FROM HERNIA SURGERY THAT WAS DONE MID FEBRUARY 2021. PROCEDURE CODES FA211 ESTABILISHED PATIENT [facility] CHARGE DISPOSITION & COMMUNICATION FOLLOW UP 10 WEEKS (REASON: F/U LBP RIGHT LEG PAIN/CONSIDER LFBDX) ELECTRONICALLY SIGNED BY NATHALY AVILA ON 03/23/2021 AT 11:14 AM EDT DISCLAIMER : THIS IS A VISIT SUMMARY EXTRACTED FROM THE [employer] CHART. IT IS NOT A COPY OF THE [employer] PROGRESS NOTE. ELIANE
== END ==
LOC: M PAIN 09:15
PROVIDERS: ATTEND Nurse Practitioner Family
DX: M47.816 Spondylosis without myelopathy or radiculopathy, lumbar region (principal); G89.29 Other chronic pain; G47.30 Sleep apnea, unspecified; G43.909 Migraine, unspecified, not intractable, without status migrainosus; Z86.59 Personal history of other mental and behavioral disorders; Z87.891 Personal history of nicotine dependence; Z88.5 Allergy status to narcotic agent; Z88.8 Allergy status to other drugs, medicaments and biological substances; Z79.899 Other long term (current) drug therapy

== ENCOUNTER → 2021-05-31 | Outpatient (CLI) | payer OTHER ==
--- NOTE | 2021-06-01 07:20 | ECWPNPC ---
PATIENT NAME: LALA RODRIGUEZ : 1960 GENDER: MALE VISIT DATE: 05/31/2021 DISCHARGE DATE: 05/31/21940 VISIT LOCKED DATE TIME: PHYSICIAN: HITESH WOODS RESOURCE: HITESH WOODS REASON FOR APPOINTMENT 1. F/U LBP RIGHT LEG PAIN/CONSIDER LFBDX HISTORY OF PRESENT ILLNESS GENERAL: HERE FOR FOLLOW-UP OF CHRONIC LOW BACK PAIN WITH RIGHT LEG PAIN AND WEAKNESS. REPORTING AN INCREASE IN HIS LOW BACK PAIN AND RIGHT LEG PAIN AND WEAKNESS OVER THE PAST FEW MONTHS. THE [facility] [place] HAS ORDERED NERVE CONDUCTION STUDIES. CURRENTLY USING ACUPUNCTURE AND MEDICAL MARIJUANA WITH GOOD EFFECT FOR CHRONIC LOW BACK PAIN. RATING PAIN LEVEL IS A 2/10 VAS. -. FALL RISK SCREENING: SCREENING MULTPY FALL STHIS YEAR NO MAJOR INJURIES, PATIENT STATED THAT HE DID NOT TO THE ER FOR ANY OF IT. PAIN SCREENING: PATIENT HAS A COMPLAINT OF ACUTE OR CHRONIC PAIN :YES LOCATION OF PAIN:LOW BACK, LEG(S) RIGHT LEG INTENSITY OF PAIN (SCALE OF 1 TO 10):2 WHAT DOES YOUR PAIN FEEL LIKE:CONTINOUS DURATION:CONTINOUS, CONSTANT, ALL DAY PAIN IS INCREASED BY:OTHERS IS NOT SURE PAIN IS DECREASED BY:OTHERS IS NOT SURE NURSING NOTE: -. PAIN CENTER INTAKE QUESTIONS: DO YOU HAVE A HISTORY OF MRSA? :NO DO YOU TAKE A BLOOD THINNERS? :NO DO YOU HAVE ANY BLEEDING DISORDERS? :NO ANY NEW NUMBNESS OR WEAKNESS IN YOUR LEGS OR ARMS? :YES NEW NUMBESS AND TINGLING IN LEFT ARM ANY PACEMAKER,DEFIBRILLATOR, OR DORSAL COLUMN STIMULATOR? :NO DO YOU HAVE ANY RASHES OR OPEN SORES? :YES 3X HERMIA SURG ARE YOU ALLERGIC TO IV DYE? :NO ARE YOU DIABETIC? :NO ANY NEW PROBLEMS WITH YOUR MEDICATIONS? :NO HAVE YOU RECEIVED A VACCINE IN THE PAST 30 DAYS? :NO DO YOU PLAN TO RECEIVE A VACCINE IN THE NEXT 21 DAYS? :YES IF OFFERED COVID VACCINE WANTS TO TAKE IT DO YOU NEED ANY PRESCRIPTION? :NO DO YOU TAKE ANY IMMUNOSUPPRESSIVE MEDICATIONS? :NO IS THERE A CHANCE YOU COULD BE ? :NO ARE YOU BREAST FEEDING? :NO CURRENT MEDICATIONS TAKING AMBIEN 5 MG TABLET 1 TABLET AT BEDTIME ORALLY ONCE A DAY, NOTES: TAKES OCCASIONALLY TAKING CRESTOR 40 MG TABLET 1 TABLET ORALLY ONCE A DAY TAKING MAY HAVE - - CBD OIL CAPSULE 20MG DAILY TAKING MAY HAVE - - CBD VAPE NEEDED TAKING HYDROXYZINE HCL 10 MG TABLET DIRECTED ORALLY BID TAKING LIDOCAINE & ADHESIVE SHEET 5 % KIT DIRECTED EXTERNALLY TAKING CENTRUM SILVER - TABLET DIRECTED ORALLY TAKING PROBIOTIC - CAPSULE DIRECTED ORALLY DAILY TAKING OXYCODONE HCL 5 MG TABLET 1 TABLET NEEDED ORALLY BID TAKING REMERON 30 MG TABLET 1 TABLET AT BEDTIME ORALLY ONCE A DAY TAKING TOPAMAX 50 MG TABLET 1 TABLET ORALLY TID TAKING ZANAFLEX 4 MG TABLET 1 TABLET NEEDED ORALLY BID TAKING MAY USE - - THC ORAL SPRAY , NOTES: PT USES THC ORAL SPRAY, POWDER, AND VAPE TAKING MAXALT 10 MG TABLET 1 TABLET ORALLY ONCE DAILY NEEDED NOT-TAKING IMITREX 100 MG TABLET 1 TABLET AT LEAST 2 HOURS BETWEEN DOSES NEEDED ORALLY TWICE A DAY NOT-TAKING CARBOXYMETHYLCELLULOSE SODIUM 0.5 % SOLUTION DIRECTED OPHTHALMIC MEDICATION LIST REVIEWED AND RECONCILED WITH THE PATIENT PAST MEDICAL HISTORY SLEEP APNEA CHRONIC BACK PAIN MIGRAINES ANXIETY/DEPRESSION TINNITIS INGUINAL HERNIA BILATERAL DIAGNOSED 02/08/20 SHOULDER/ARM PAIN NECK PAIN HIGH CHOLESTEROL MULTPY FALL STHIS YEAR NO MAJOR INJURIES, PATIENT STATED THAT HE DID NOT TO THE ER FOR ANY OF IT. ALLERGIES COMPAZINE: SEIZURES - ALLERGY VALIUM: NAUSEA - SIDE EFFECTS SOCIAL HISTORY GENERAL: TOBACCO USE ARE YOU A:FORMER SMOKER HOW LONG HAS IT BEEN SINCE YOU LAST SMOKED?> 10 YEARS LATEX QUESTIONNAIRE LATEX ALLERGY : HAVE YOU EVER DEVELOPED ANY TYPE OF REACTION AFTER HANDLING LATEX PRODUCTS SUCH RUBBER GLOVES, CONDOMS, DIAPHRAGMS, BALLOONS, SOCKS, OR UNDERWEAR?NO LATEX ALLERGY : HAVE YOU EVER DEVELOPED ANY TYPE OF REACTION DURING OR AFTER DENTAL APPOINTMENT, VAGINAL/RECTAL EXAMINATION, SURGICAL PROCEDURE, OR ANY OTHER EXPOSURE?NO LATEX RISK : HAVE YOU EVER HAD ANY DIFFICULTY BREATHING OR HIVES AFTER EATING OR HANDLING ANY FRUITS, OR VEGETABLES; SUCH KIWI, BANANAS, STONE FRUITS, OR CHESTNUTSNO LATEX RISK : DO YOU HAVE A PREVIOUS PERSONAL HISTORY OF MORE THAN NINE SURGERIES, SPINA BIFIDA, OR REPEATED CATHERIZATIONS? NO LATEX RISK : ARE YOU FREQUENTLY EXPOSED TO LATEX PRODUCTS IN YOUR OCCUPATION?NO DATE ASKED : 05/31/2021 ALCOHOL USE: YES, ONCE IN A WHILE BEER. ALCOHOL SCREENING DID YOU HAVE A DRINK CONTAINING ALCOHOL IN THE PAST YEAR?YES HOW OFTEN DID YOU HAVE SIX OR MORE DRINKS ON ONE OCCASION IN THE PAST YEAR?NEVER (0 POINTS) HOW MANY DRINKS DID YOU HAVE ON A TYPICAL DAY WHEN YOU WERE DRINKING IN THE PAST YEAR?1 OR 2 (0 POINTS) HOW OFTEN DID YOU HAVE A DRINK CONTAINING ALCOHOL IN THE PAST YEAR?TWO TO FOUR TIMES A MONTH (2 POINTS) POINTS2 INTERPRETATIONNEGATIVE RECREATIONAL DRUG USE DRUG USE?YES PRESCRIBED MEDICAL MARIJUANA CAFFEINE CAFFEINE USE?YES 1 CUP COFFEE DAILY [employer]AN [id number] [employer] LANGUAGE LANGUAGES SPOKEN:BRITISH VIRGIN ISLANDER EDUCATION LEVEL OF EDUCATION:COLLEGE LEARNING BARRIERS / SPECIAL NEEDS CHANGE FROM LAST VISIT?YES BARRIERS TO LEARNING?YES COMMENTS HAVE A HARD TIME REMEMBER HEARING IMPAIRED?YES VISION IMPAIRED?YES :CORRECTIVE LENSES READING COGNITIVELY IMPAIRED?NO READINESS TO LEARN?YES LEARNING PREFERENCES?NO LEARNING CAPABILITIES PRESENT?YES EMOTIONAL BARRIERS?YES PT REPORTS HISTORY OF ANXIETY/DEPRESSION SPECIAL DEVICES?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 DIET: GLUTEN FREE. EXERCISE: WALKS. MARITAL STATUS: . REVIEW OF SYSTEMS CONSTITUTIONAL: ANY RECENT FEVER NO . CHILLS NO . WEIGHT CHANGE OF UNKNOWN REASONS NO . GASTROENTEROLOGY: NEW UNEXPLAINABLE CHANGES IN BOWEL CONTROL NO . CONSTIPATION NO . GENITOURINARY: ANY NEW CHANGE IN BLADDER CONTROL? NO . NEUROLOGY: NEW ONSET DIZZINESS OR NEUROLOGICAL CHANGES NOT MENTIONED YES. BEING FOLLOWED FOR CHRONIC DIZZINESS. FOLLOWING WITH CARDIOLOGY FOR THIS. . NEW NUMBNESS OR PAIN PATTERNS NOT MENTIONED AND PERTINENT TO TODAY'S VISIT NO . CARDIOLOGY: NEW CHEST PRESSURE NO . PATIENT DENIES NO . RESPIRATORY: UNEXPLAINABLE COUGH NO . NEW SHORTNESS OF BREATH NO . VITAL SIGNS WT 166 LBS, HT 58 IN, BMI 34.69 INDEX, BP 144/81 MM HG, HR 75 /MIN, RR 18 /MIN, TEMP 75.5 F, OXYGEN SAT % 97%, SAFE IN ENV? (Y/N) YEST.BRENT KELLER. EXAMINATION GENERAL EXAMINATION: GENERALNO ACUTE DISTRESS, WALKS WITH ASSIST OF A CANE WITH A SLIGHT ANTALGIC GAIT NOTED. LUNGS:CLEAR TO AUSCULTATION BILATERALLY, NO WHEEZES, RHONCHI, RALES. HEART:NO MURMURS, REGULAR RATE AND RHYTHM. MUSCULOSKELETAL:WEAKNESS NOTED OVER RIGHT LEG.. LUMBAR:TENDER WITH PALPATION OVER THE LS SPINE AND LS PARASPINALS. POSITIVE FOR FACET LOADING WITH EXTENSION OF SPINE. NEUROLOGIC EXAM:NORMAL SENSATION TO LIGHT TOUCH LOWER EXTREMITIES.. ASSESSMENTS LUMBAR FACET ARTHROPATHY - M47.816 (PRIMARY) TREATMENT LUMBAR FACET ARTHROPATHY NOTES: PATIENT WILL CONTINUE TO FOLLOW-UP WITH [facility] TO INCREASE IN LOW BACK PAIN AND RIGHT LEG WEAKNESS. HE WILL CONTINUE TO FOLLOW WITH CARDIOLOGY FOR CHRONIC DIZZINESS. HE WILL CONTINUE WITH USE OF MEDICAL MARIJUANA AND ACUPUNCTURE. FOLLOW-UP IS SCHEDULED AT THE PAIN CENTER IN 3 MONTHS. PROCEDURE CODES FA211 ESTABILISHED PATIENT [facility] CHARGE DISPOSITION & COMMUNICATION FOLLOW UP 3 MONTHS (REASON: LOW BACK PAIN/RIGHT LEG WEAKNESS/RECENT NERVE CONDUCTION STUDIES AT [facility] [place]) ELECTRONICALLY SIGNED BY NATHALY AVILA ON 05/31/2021 AT 12:43 PM EDT DISCLAIMER : THIS IS A VISIT SUMMARY EXTRACTED FROM THE [employer] CHART. IT IS NOT A COPY OF THE [employer] PROGRESS NOTE. ELIANE
== END ==
LOC: M PAIN 09:15
PROVIDERS: ATTEND Nurse Practitioner Family
DX: M47.816 Spondylosis without myelopathy or radiculopathy, lumbar region (principal); G89.29 Other chronic pain; G47.30 Sleep apnea, unspecified; G43.909 Migraine, unspecified, not intractable, without status migrainosus; Z86.59 Personal history of other mental and behavioral disorders; Z87.891 Personal history of nicotine dependence; Z88.5 Allergy status to narcotic agent; Z88.8 Allergy status to other drugs, medicaments and biological substances; Z79.899 Other long term (current) drug therapy

== ENCOUNTER → 2021-09-03 | Outpatient (CLI) | payer OTHER | LOC: M PAIN 08:30 | PROVIDERS: ATTEND Anesthesiology | DX: M54.50 Low back pain, unspecified (principal); M51.16 Intervertebral disc disorders with radiculopathy, lumbar region; G89.29 Other chronic pain; G47.30 Sleep apnea, unspecified; G43.909 Migraine, unspecified, not intractable, without status migrainosus; Z86.59 Personal history of other mental and behavioral disorders; Z87.891 Personal history of nicotine dependence; Z88.5 Allergy status to narcotic agent; Z88.8 Allergy status to other drugs, medicaments and biological substances; Z79.899 Other long term (current) drug therapy ==

== ENCOUNTER → 2021-09-24 | Outpatient (CLI) | payer OTHER | LOC: M PAIN 09:00 | PROVIDERS: ATTEND Anesthesiology | DX: M54.50 Low back pain, unspecified (principal); M79.18 Myalgia, other site; Z87.891 Personal history of nicotine dependence; Z79.899 Other long term (current) drug therapy ==

== ENCOUNTER → 2022-08-01 | Outpatient (CLI) | payer OTHER ==
[~2022-08-01] MED LIST changes: -MAXA10TA14 PO; +RIZA10TA64 PO
== END ==
LOC: M PAIN 11:15
PROVIDERS: ATTEND Nurse Practitioner Family
DX: M51.16 Intervertebral disc disorders with radiculopathy, lumbar region (principal); G89.29 Other chronic pain; M79.18 Myalgia, other site; G47.30 Sleep apnea, unspecified; G43.909 Migraine, unspecified, not intractable, without status migrainosus; Z86.59 Personal history of other mental and behavioral disorders; Z87.891 Personal history of nicotine dependence; Z88.5 Allergy status to narcotic agent; Z88.8 Allergy status to other drugs, medicaments and biological substances; Z79.899 Other long term (current) drug therapy

== ENCOUNTER → 2022-10-31 | Outpatient (CLI) | payer OTHER | LOC: M PAIN 09:30 | PROVIDERS: ATTEND Nurse Practitioner Family | DX: M51.16 Intervertebral disc disorders with radiculopathy, lumbar region (principal); G89.29 Other chronic pain; R73.03 Prediabetes; G47.30 Sleep apnea, unspecified; G43.909 Migraine, unspecified, not intractable, without status migrainosus; Z86.59 Personal history of other mental and behavioral disorders; Z87.891 Personal history of nicotine dependence; Z88.5 Allergy status to narcotic agent; Z88.8 Allergy status to other drugs, medicaments and biological substances; Z79.899 Other long term (current) drug therapy ==

== ENCOUNTER 2023-04-03 11:28 | Observation (INO) | payer OTHER ==
[~2023-04-03] VITALS: Ht 172.7 cm; Wt 66.8 kg
[2023-04-03 12:18] LABS: BASO % 0.5 % (0.0-1.0); EOS # 0.1 10^3/uL (0.0-0.5); EOS % 0.8 % (0.0-3.0); LYMPH # 1.4 10^3/uL (1.5-5.0); LYMPH % 22.6 % (24.0-44.0); MEAN CORPUSCULAR HEMOGLOBIN 29.9 pg (27.0-33.0); MEAN CORPUSCULAR HGB CONC 33.3 g/dl (32.0-36.5); MEAN CORPUSCULAR VOLUME 89.6 fl (80.0-96.0); MONO # 0.5 10^3/uL (0.0-0.8); NEUTROPHILS % 66.9 % (36.0-66.0); PLATELET COUNT, AUTOMATED 214 10^3/uL (150-450); RED BLOOD COUNT 5.02 10^6/uL (4.30-6.10)
[2023-04-03 12:30] LABS: INR 0.91; PROTHROMBIN TIME 12.5 SECONDS (12.5-14.5)
[2023-04-03 12:47] LABS: BLOOD UREA NITROGEN 11 MG/DL (9-23); CALCIUM LEVEL 8.8 MG/DL (8.3-10.6); CARBON DIOXIDE LEVEL 30 MMOL/L (20-31); CHLORIDE LEVEL 105 MMOL/L (98-107); CK-MB VALUE MASS < 1.0 NG/ML (<3.6); CREATININE FOR GFR 1.04 MG/DL (0.70-1.30); GLOMERULAR FILTRATION RATE > 60.0 (>49); GLUCOSE, FASTING 88 MG/DL (74-106); SODIUM LEVEL 143 MMOL/L (136-145)
[2023-04-03 12:50] LABS: CPK CREATINE PHOSPHOKINASE 150 U/L (46-171); MB/CK RELATIVE INDEX 0.66 (< OR =4)
[2023-04-03 12:58] LABS: RSV AMPLIFICATION NEGATIVE (NEGATIVE)
[2023-04-03 13:50] LABS: ALBUMIN 4.1 G/DL (3.2-5.2); ALKALINE PHOSPHATASE 66 U/L (46-116); ALT/SGPT 37 U/L (7.0-40); AST/SGOT 31 U/L (<34); BILIRUBIN,DIRECT 0.3 MG/DL (<0.4); BILIRUBIN,TOTAL 0.7 MG/DL (0.3-1.2); TOTAL PROTEIN 6.7 G/DL (5.7-8.2)
[2023-04-03 16:11] LABS: HEMOGLOBIN A1c 5.4 % (4.0-6.0)
[2023-04-03 16:24] LABS: AMPHETAMINES LEVEL URINE NEGATIVE (NEGATIVE); BARBITURATES URINE NEGATIVE (NEGATIVE); BENZODIAZEPINES URINE NEGATIVE (NEGATIVE); COCAINE METABOLITE URINE NEGATIVE (NEGATIVE); METHADONE URINE NEGATIVE (NEGATIVE); OPIATES URINE NEGATIVE (NEGATIVE); PHENCYCLIDINE URINE NEGATIVE (NEGATIVE)
[2023-04-03 16:27] LABS: CANNABINOIDS URINE POSITIVE (NEGATIVE)
[2023-04-03 16:28] LABS: CHOLESTEROL RISK RATIO 2.09 (<5); HDL CHOLESTEROL 47.2 MG/DL (>40); LDL CHOLESTEROL 34.2 MG/DL (<100); NON-HDL-C 51.8 MG/DL
[2023-04-03] MEDS ORDERED: BUSP15TA47 PO (16:33)
[2023-04-03] MEDS ORDERED: AZEL0.1S NARES (16:33)
[2023-04-03] MEDS ORDERED: VITA100093 PO (16:33)
[2023-04-03] MEDS ORDERED: ZETI10TA16 PO (16:33)
[2023-04-03] MEDS ORDERED: MUCI600T31 PO (16:33)
[2023-04-03] MEDS ORDERED: MAXA10TA15 PO (16:33)
[2023-04-03] MEDS ORDERED: CETI-24 PO (16:33)
[2023-04-03] MEDS ORDERED: ZOLP10TA2 PO (16:33)
[2023-04-03] MEDS ORDERED: TIZA10TA PO (16:33)
[2023-04-03] MEDS ORDERED: FLON1SPR NARES (16:33)
[2023-04-03] MEDS ORDERED: HYDR-3363 PO (16:33)
[2023-04-03] MEDS ORDERED: MIRT1TAB17 PO (16:33)
[2023-04-03] MEDS ORDERED: CBD GUMMIES PO (16:33)
[2023-04-03] MEDS ORDERED: TRAM50TA2 PO (16:33)
[2023-04-03] MEDS ORDERED: HOME MED LIST COMPLETE! XX SCH (16:35)
[2023-04-03] MEDS: ASPIRIN 81MG ENTERIC TABLET PO SCH (16:43)
[2023-04-03] MEDS ORDERED: tiZANidine 4 MG TAB PO PRN (18:20)
[2023-04-03] MEDS ORDERED: CETIRIZINE (ZyrTEC) 10 MG TAB PO PRN (18:20)
[2023-04-03] MEDS ORDERED: RIZATRIPTAN MLT 10 MG TAB PO PRN (18:20)
[2023-04-03] MEDS ORDERED: FLUTICASONE PROP 0.05% NASAL SPRAY 16 GM (FLONASE) NARES PRN (18:20)
[2023-04-03] MEDS ORDERED: AZELASTINE 137MCG NASAL SPY 30 ML (ASTELIN) PRN (18:20)
[2023-04-03] MEDS ORDERED: guaiFENesin ER 600 MG TAB PO PRN (18:20)
[2023-04-03 21:00] VITALS: BP 150/86
[2023-04-03] MEDS ORDERED: MIRTAZAPINE 15 MG TAB PO SCH (21:00)
[2023-04-03] MEDS ORDERED: RAMELTEON 8 MG TAB (ROZEREM) PO PRN (21:15)
[2023-04-04 06:00] VITALS: BP 134/86
[2023-04-04] MEDS ORDERED: ROSUVASTATIN 10 MG TAB (CRESTOR) PO SCH (09:00)
[2023-04-04] MEDS ORDERED: EZETIMIBE 10MG TABLET (ZETIA) PO SCH (09:00)
[2023-04-04] MEDS ORDERED: VITAMIN D 1,000 INTERNATIONAL UNITS TABLET PO SCH (09:00)
[2023-04-04] MEDS: ASPIRIN 81MG ENTERIC TABLET PO SCH (09:33)
[2023-04-04] MEDS: busPIRone 5 MG TAB PO SCH ×2 (09:34→14:39)
[2023-04-04 10:00] VITALS: BP 112/72
[2023-04-04] MEDS ORDERED: ASPI81TAEC PO (10:51)
[2023-04-04 14:00] VITALS: BP 114/71
== END 2023-04-04 16:34 | disposition home or self-care (01) ==
LOC: M ED 11:28 → M ED INP 11:29 → M MSPAV 20:51
PROVIDERS: ADMIT Family Medicine; ATTEND Family Medicine
DX: R47.01 Aphasia (principal); G43.909 Migraine, unspecified, not intractable, without status migrainosus; F41.9 Anxiety disorder, unspecified; G47.33 Obstructive sleep apnea (adult) (pediatric); G89.29 Other chronic pain; Z79.82 Long term (current) use of aspirin; Z79.899 Other long term (current) drug therapy; Z88.8 Allergy status to other drugs, medicaments and biological substances
CPT/HCPCS: 70450; 70544; 70551; 71045; 80048; 80061; 80076; 80307; 82550; 82553; 83036; 84484; 85025; 85610; 85730; 86850; 86900; 86901; 87631; 93005; 93041; 93306; 93880; 94760; 99285; G0378

== ENCOUNTER 2023-07-14 05:07 | Emergency (ER) | payer OTHER ==
[~2023-07-14] VITALS: Ht 177.8 cm; Wt 105.0 kg
[~2023-07-14 05:07] MED LIST changes: +ASPI81TAEC PO; +AZEL0.1S NARES; +BUSP15TA47 PO; +CBD GUMMIES PO; +CETI-24 PO; +FLON1SPR NARES; +HYDR-3363 PO; +MIRT-84 PO; +MIRT1TAB17 PO; +MUCI600T31 PO; -REME15TA2 PO; +RIZA10TA66 PO; +TIZA10TA PO; +TRAM50TA2 PO; +VITA100093 PO; +ZETI10TA16 PO; +ZOLP10TA2 PO
[2023-07-14] MEDS ORDERED: NS 1,000 ML IV ONE (05:35)
[2023-07-14] MEDS ORDERED: ONDANSETRON 4MG 2ML VIAL IV ONE (05:35)
[2023-07-14 05:39] LABS: BASO % 0.3 % (0.0-1.0); EOS % 0.3 % (0.0-3.0); HEMATOCRIT 45.5 % (42.0-52.0); HEMOGLOBIN 15.1 g/dl (13.5-17.5); LYMPH # 1.1 10^3/uL (1.5-5.0); LYMPH % 8.4 % (24.0-44.0); MEAN CORPUSCULAR HEMOGLOBIN 30.4 pg (27.0-33.0); MEAN CORPUSCULAR HGB CONC 33.2 g/dl (32.0-36.5); MEAN CORPUSCULAR VOLUME 91.7 fl (80.0-96.0); MONO # 0.6 10^3/uL (0.0-0.8); MONO % 4.8 % (2.0-8.0); NEUTROPHILS # 11.1 10^3/uL (1.5-8.5); NEUTROPHILS % 85.8 % (36.0-66.0); PLATELET COUNT, AUTOMATED 225 10^3/uL (150-450); RED BLOOD COUNT 4.96 10^6/uL (4.30-6.10); WHITE BLOOD COUNT 12.9 10^3/uL (4.0-10.0)
[2023-07-14 05:57] LABS: ALBUMIN 4.4 G/DL (3.2-5.2); BILIRUBIN,DIRECT 0.2 MG/DL (<0.4); BILIRUBIN,TOTAL 0.7 MG/DL (0.3-1.2); TOTAL PROTEIN 7.4 G/DL (5.7-8.2)
[2023-07-14] MEDS ORDERED: KETOROLAC 30 MG/ML 1ML VIAL IV ONE (06:00)
[2023-07-14 06:01] LABS: INR 1.11
[2023-07-14 06:02] LABS: PARTIAL THROMBOPLASTIN TIME 25.4 SECONDS (24.8-34.2)
[2023-07-14] MEDS ORDERED: KETO10TAB PO (06:41)
[2023-07-14] MEDS ORDERED: ONDA4TAB6 PO (06:41)
[2023-07-14] MEDS ORDERED: FLOM0.4C39 PO (06:41)
[2023-07-14 06:53] VITALS: BP 122/82; TEMP 98.1; O2SAT 99
== END 2023-07-14 07:04 | disposition home or self-care (01) ==
LOC: M ED 05:07 → EDBD 05:07 → M ED 07:04
DX: R07.9 Chest pain, unspecified (principal); E87.1 Hypo-osmolality and hyponatremia; I49.3 Ventricular premature depolarization; F12.10 Cannabis abuse, uncomplicated; Z87.891 Personal history of nicotine dependence; Z88.8 Allergy status to other drugs, medicaments and biological substances
CPT/HCPCS: 74176; 80047; 80076; 82150; 83605; 83690; 85025; 85610; 85730; 87486; 87581; 87633; 87798; 93005; 93041; 96361; 96374; 99284; J1885; J2405

== ENCOUNTER 2023-12-03 16:43 | Emergency (ER) | payer OTHER ==
[~2023-12-03] VITALS: Ht 172.7 cm; Wt 68.2 kg
[~2023-12-03 16:43] MED LIST changes: +EZET10TA58 PO; +FLOM0.4C39 PO; +KETO10TAB PO; +ONDA4TAB6 PO; -ZETI10TA16 PO
[2023-12-03 17:24] LABS: BASO % 0.4 % (0.0-1.0); EOS # 0.1 10^3/uL (0.0-0.5); EOS % 1.1 % (0.0-3.0); HEMATOCRIT 40.3 % (42.0-52.0); HEMOGLOBIN 13.2 g/dl (13.5-17.5); LYMPH # 1.2 10^3/uL (1.5-5.0); LYMPH % 22.8 % (24.0-44.0); MEAN CORPUSCULAR HEMOGLOBIN 30.6 pg (27.0-33.0); MEAN CORPUSCULAR HGB CONC 32.8 g/dl (32.0-36.5); MEAN CORPUSCULAR VOLUME 93.3 fl (80.0-96.0); MONO # 0.6 10^3/uL (0.0-0.8); MONO % 11.2 % (2.0-8.0); NEUTROPHILS # 3.4 10^3/uL (1.5-8.5); NEUTROPHILS % 64.3 % (36.0-66.0); PLATELET COUNT, AUTOMATED 217 10^3/uL (150-450); RED BLOOD COUNT 4.32 10^6/uL (4.30-6.10); WHITE BLOOD COUNT 5.3 10^3/uL (4.0-10.0)
[2023-12-03] MEDS ORDERED: KETOROLAC 30 MG/ML 1ML VIAL IV ONE (17:25)
[2023-12-03 17:41] LABS: INR 1.01
[2023-12-03 17:42] LABS: PARTIAL THROMBOPLASTIN TIME 24.5 SECONDS (24.8-34.2)
[2023-12-03 17:46] LABS: CK-MB VALUE MASS < 1.0 NG/ML (<3.6); LIPASE 23 U/L (12-53)
[2023-12-03 17:48] LABS: ALBUMIN 3.8 G/DL (3.2-5.2); ALKALINE PHOSPHATASE 62 U/L (46-116); ALT/SGPT 47 U/L (7.0-40); AST/SGOT 32 U/L (<34); BILIRUBIN,DIRECT 0.2 MG/DL (<0.4); BILIRUBIN,TOTAL 0.5 MG/DL (0.3-1.2); BLOOD UREA NITROGEN 7 MG/DL (9-23); CALCIUM LEVEL 8.5 MG/DL (8.3-10.6); CARBON DIOXIDE LEVEL 29 MMOL/L (20-31); CHLORIDE LEVEL 110 MMOL/L (98-107); CPK CREATINE PHOSPHOKINASE 173 U/L (46-171); CREATININE FOR GFR 1.02 MG/DL (0.70-1.30); GLOMERULAR FILTRATION RATE > 60.0 (>49); GLUCOSE, FASTING 82 MG/DL (74-106); MB/CK RELATIVE INDEX 0.57 (< OR =4); SODIUM LEVEL 143 MMOL/L (136-145); TOTAL PROTEIN 6.3 G/DL (5.7-8.2)
[2023-12-03 17:49] LABS: FREE T4 0.76 NG/DL (0.89-1.76)
[2023-12-03 17:50] LABS: THYROID STIMULATING HORMONE 4.333 uIU/ML (0.55-4.78)
[2023-12-03 18:31] LABS: CK-MB VALUE MASS < 1.0 NG/ML (<3.6)
[2023-12-03 18:32] LABS: CPK CREATINE PHOSPHOKINASE 157 U/L (46-171); MB/CK RELATIVE INDEX 0.63 (< OR =4)
[2023-12-03] MEDS ORDERED: KETO10TAB PO (18:51)
[2023-12-03 19:15] VITALS: BP 128/87; TEMP 98.1; O2SAT 98
== END 2023-12-03 19:20 | disposition home or self-care (01) ==
LOC: M ED 16:43
DX: R07.89 Other chest pain (principal); I49.3 Ventricular premature depolarization; E78.5 Hyperlipidemia, unspecified; F41.9 Anxiety disorder, unspecified; F32.9 Major depressive disorder, single episode, unspecified; Z79.82 Long term (current) use of aspirin; Z79.810 Long term (current) use of selective estrogen receptor modulators (SERMs); Z79.83 Long term (current) use of bisphosphonates; Z79.899 Other long term (current) drug therapy
CPT/HCPCS: 71045; 80048; 80076; 82550; 82553; 83690; 83880; 84439; 84443; 84484; 85025; 85610; 85730; 93005; 93041; 94760; 96374; 99285; J1885

== ENCOUNTER → 2024-02-19 | Outpatient (CLI) | payer OTHER ==
[2024-02-19 11:26] LABS: BASO % 0.6 % (0.0-1.0); EOS # 0.1 10^3/uL (0.0-0.5); EOS % 0.7 % (0.0-3.0); HEMATOCRIT 45.8 % (42.0-52.0); LYMPH # 1.4 10^3/uL (1.5-5.0); LYMPH % 19.5 % (24.0-44.0); MEAN CORPUSCULAR HEMOGLOBIN 30.7 pg (27.0-33.0); MEAN CORPUSCULAR HGB CONC 32.8 g/dl (32.0-36.5); MEAN CORPUSCULAR VOLUME 93.9 fl (80.0-96.0); MONO # 0.6 10^3/uL (0.0-0.8); MONO % 8.5 % (2.0-8.0); NEUTROPHILS # 4.9 10^3/uL (1.5-8.5); NEUTROPHILS % 70.4 % (36.0-66.0); PLATELET COUNT, AUTOMATED 189 10^3/uL (150-450); RED BLOOD COUNT 4.88 10^6/uL (4.30-6.10)
== END ==
LOC: M LAB 10:36
PROVIDERS: ATTEND Allergy & Immunology
DX: J30.89 Other allergic rhinitis (principal)

== ENCOUNTER → 2024-03-18 | Outpatient (CLI) | payer OTHER | LOC: M RAD 10:27 | PROVIDERS: ATTEND Otolaryngology | DX: J32.9 Chronic sinusitis, unspecified (principal) ==

== ENCOUNTER → 2024-03-27 | Outpatient (CLI) | payer OTHER | LOC: M SLEEP 20:00 | PROVIDERS: ATTEND Internal Medicine | DX: G47.61 Periodic limb movement disorder (principal) ==